=== PATIENT | male | born 1945 | race Caucasian/White ===

== ENCOUNTER 2022-08-30 13:11 | Inpatient (IN) ==
[2022-08-30] MEDS ORDERED: OPTIRAY 320 500ml IV ONE (13:22)
--- NOTE | 2022-08-30 13:42 | CT Scan Report ---
CT OF THE HEAD WITHOUT CONTRAST CLINICAL HISTORY: neuro deficit, acute stroke suspected COMPARISON STUDY: No previous studies for comparison. TECHNIQUE: Helical axial images of the head were obtained without IV contrast. Automated exposure con trol was utilized for the study. A dose lowering technique was utilized adhering to the principles o f ALARA. FINDINGS: No acute intracranial hemorrhage, midline shift or mass effect is present. A 2.1 cm hypoden sity with volume loss suggests encephalomalacia within the left occipital lobe shown on axial image 1 . White matter hypodensity suggests small vessel disease. The ventricular system is unremarkab le. The basal cisterns are patent. No extra-axial collections are present. There are no findings to s uggest acute dural sinus thrombosis or acute territorial infarct. No significant calvarial abnormalit ies are present. Visualized portions of the sinuses and mastoid air cells are clear. IMPRESSION: 1. No acute intracranial hemorrhage or mass effect. 2. 2.1 cm left occipital lobe hypodensity suggestive of encephalomalacia. This is suggestive of an ol d infarct. ACT 112: Negative or not required by law. Electronically signed by: Isra Urias M.D. 08/30/2022 1:41 PM
--- NOTE | 2022-08-30 13:43 | Emergency Department Note ---
Impression & Plan Stroke-like symptom, Slurring of speech, Carotid arterial disease ED Provider Note NAME: GARY HOUSER AGE: 77 SEX: M : 1945 ARRIVES VIA: Walk-In INFORMANT: Patient, the patient's son ED PROVIDER(S): Dev Fu DO CHIEF COMPLAINT: Strokelike symptoms HPI: The patient is a 77-year-old male who presented to the emergency department through triage for evaluation of strokelike symptoms. The patient was running errands driving a vehicle. He states he went to the store. He states he had no problems at the store. He returned from the store and got to his home. At his home where his son and his [id number]. He talked with his [id number] and appeared to have no problems but when he went to talk to his son the patient apparently started having problems speaking. His son states he was almost completely not able to understand what he was saying. He was also shaking his right leg complaining of numbness in his right leg. The patient has no history of stroke. He has a history of diabetes. He states he has no headache. He has no vomiting. He was brought to the emergency department. He was made a stroke alert from triage. I evaluated the patient in CAT scan. ROS: See above HPI for pertinent positives & negatives. A total of 10 systems reviewed and were otherwise negative. PAST MEDICAL HISTORY: See Below PAST SURGICAL HISTORY: See Below FAMILY HISTORY: See Below SOCIAL HISTORY: See Below HOME MEDICATIONS: See Below ALLERGIES: See Below VITALS: See Below PHYSICAL EXAMINATION: GENERAL: The patient is awake and alert. The patient is somewhat anxious appearing. He appears comfortable. EYES: The conjunctivae are clear. The pupils are round and reactive. EARS, NOSE, MOUTH AND THROAT: The nose is without any evidence of any deformity. NECK: The neck is nontender and supple. RESPIRATORY: Normal respiratory effort is noted there is no evidence of wheezing rhonchi or rales CARDIOVASCULAR: Ectopy was noted to auscultation but overall regular heart sounds were noted. There is no definite murmur. GASTROINTESTINAL: The abdomen is soft. Abdomen is nontender. MUSCULOSKELETAL/EXTREMITIES: There is no evidence of gross deformity full range of motion is noted in the hips and shoulders. SKIN: There is no obvious evidence of any rash. There are no petechiae, pallor o r cyanosis noted. NEUROLOGIC: Patient is awake and oriented to person place and situation. There was a slight facial droop on the left sparing the forehead. Patient is able to close both eyes. Speech is pressured. Patient has word finding. There is no drift in the upper extremities. Judicial Reporter strength is symmetric. Patient is able to hold each leg off the bed for greater than 5 seconds. MEDICAL DECISION MAKING: The patient is a 77-year-old male who presented to the emergency department through triage for an evaluation of strokelike symptoms. The patient appeared to have a slight facial droop as well as dysarthria. The patient's initial CAT scan showed no acute process. He was felt to be a candidate for an acute ischemic stroke. For this reason I discussed his condition with the [facility] telestroke neurologist. There was some issues with the connection. The patient was evaluated. The telestroke neurologist asked me to call him back so we went through the stroke center 1 call. When I discussed patient's condition with the telestroke neurologist he did recommend that we discussed possibility of TNK with the patient. The patient was verbally consented for TNK with himself as well as the patient's son. I discussed patient's laboratory and radiographic studies with the on-call [facility] group. They have agreed to evaluate the patient in the emergency department for further management and disposition. Triage Nursing notes reviewed. Prior medical records reviewed Vital Signs: reviewed and remarkable for initial hypertension. Differential diagnosis: Infection, dehydration, metabolic abnormality, hypo/hyperglycemia, electrolyte disturbance, anemia, hypoxia, cardiac sources, intracerebral event, toxicologic, neurologic, as well as other pathologies. ER treatment provided: See below Diagnostics interpreted by me: ECG: EKG was obtained in the emergency department. My interpretation is normal sinus rhythm at 75 bpm. There is no ectopy. There is no acute ST segment abnormalities. This was compared to a tracing from April 18, 2022. No changes were noted Cardiac Monitoring: An order was placed for continuous cardiac monitoring. The monitor shows a rate of 61 bpm with sinus rhythm. Laboratory studies: As stated above and show below. Imaging studies: See below. Radiographic imaging was reviewed by myself Consultation(s): I discussed this case with Dr. Phillips who is on for [facility]. I discussed this case with Stephanie who is on-call for the [facility] group. ED COURSE: Procedures: none Critical Care: I have personally spent greater than 45 minutes of critical care time in the direct management of this patient. This includes bedside care, interpretation of diagnostic studies, and testing, discussion with consultants, patient, and family members, and other required patient management activities. This 45 minutes is in excess of all separately billable procedures. Thrombolytics MDM Did the patient receive IV thrombolytics?: Yes Was there any delay in administration?: Yes Reason(s) for Delay: The patient had a waxing and waning of his symptoms. Symptoms were improving however after the patient was evaluated by the telestroke neurologist there was discussion for thrombolytic administration which ultimately was felt to be indicated. Past Med/Surg History Medical History (Updated 08/30/22 @ 17:00 by Stephanie Henderson PA-C) Anxiety DM type 2 (diabetes mellitus, type 2) IDDM [place] (hard of hearing) BL HICKS HTN (hypertension) Hyperlipemia Obesity War injury due to shrapnel hx Surgical History History of colonoscopy History of shoulder surgery Rt History of surgery removal of shrapnel from groin region History of tonsillectomy History of tooth extraction History of vasectomy Family History Father Diabetes Other No family history of adverse response to anesthesia Social History Smoking Status: Former smoker Second Hand Exposure: Yes (hx); Hx Alcohol Use: No Hx Substance Use: No Preferred Language: Somali Communication Ability: Effective Fire Equipment Repairer Inspector Required: No Beliefs That Will Affect Care: None Current Living Situation: Family Feels Safe at Home: Yes Safety Concerns: Feels Safe At This Time Assistive Devices: Denture - Upper, Glasses and Hearing Aid - Bilateral Allergies Allergies Allergy/AdvReac Type Severity Reaction Status Date / Time No Known Allergies Allergy Unknown Verified 04/13/22 06:22 Home Meds Home Medications Medication Instructions Recorded Confirmed atorvastatin 80 mg tablet 40 mg PO QAM 06/04/20 08/30/22 finasteride 5 mg tablet 5 mg PO QAM 06/04/20 08/30/22 insulin aspar prt-insulin aspart 18 unit subcut BID 06/04/20 08/30/22 100 unit/mL (70-30) subcutaneous soln (Novolog Mix 70-30 U-100 Insuln) lisinopril 10 mg tablet 5 mg PO QAM 06/04/20 08/30/22 metformin 1,000 mg tablet 1,000 mg PO BID 06/04/20 08/30/22 multivitamin 1 tab PO QAM 06/04/20 08/30/22 aspirin 81 mg tablet,delayed 81 mg PO DAILY 04/13/22 08/30/22 release cranberry 500 mg capsule 500 mg PO DAILY 04/13/22 08/30/22 omega 5-[id number]-fir-fish oil 1,000 mg 1 cap PO DAILY 04/13/22 08/30/22 (120 mg-180 mg) capsule (Fish Oil) Results & Data (ED) Vital Signs Vital Signs - 24 hr 08/30/22 13:16 08/30/22 13:41 08/30/22 13:37 Temperature Temperature Source Temporal Artery Scan Pulse Rate 81 73 72 Pulse Rate [Left] Pulse Rate from SpO2 Sensor 70 Pulse Rhythm [Left] Pulse Strength [Left] Respiratory Rate 18 13 Respiratory Effort / Characteristics Non-Labored Spontaneous Respiratory Depth Normal Respiratory Pattern Regular Blood Pressure 151/67 H 144/91 H Blood Pressure [Left Arm] Blood Pressure Mean 95 108 Blood Pressure Mean [Left Arm] Blood Pressure Position [Left Arm] Pulse Oximetry 93 94 Oxygen Delivery Method Room Air Room Air Sepsis Recent Fever Within 48 Hours No Sepsis New/Unexplained Change in Mental Status No Sepsis Action Taken by Nursing No Action Required 08/30/22 13:45 08/30/22 14:32 Temperature 36.8 C Temperature Source Oral Pulse Rate 77 Pulse Rate [Left] 65 Pulse Rate from SpO2 Sensor 76 Pulse Rhythm [Left] Regular Pulse Strength [Left] Normal Respiratory Rate 25 H 16 Respiratory Effort / Characteristics Non-Labored Respiratory Depth Normal Respiratory Pattern Regular Blood Pressure 163/86 H Blood Pressure [Left Arm] 138/66 Blood Pressure Mean 111 Blood Pressure Mean [Left Arm] 90 Blood Pressure Position [Left Arm] Sitting Pulse Oximetry 99 97 Oxygen Delivery Method Room Air Room Air Sepsis Recent Fever Within 48 Hours Sepsis New/Unexplained Change in Mental Status Sepsis Action Taken by Halfway Medications Current Medication List: was personally reviewed by me Laboratory Data Attestation: I reviewed the patient's lab results. 08/30/22 13:43 08/30/22 13:43 Lab Results 08/30/22 08/30/22 08/30/22 Range/Units 13:43 13:43 13:43 WBC 6.35 (4.8-10.8) K/ul RBC 4.35 L (4.70-6.10) M/uL Hgb 13.3 L (14.0-18.0) g/dl Hct 38.4 L (42.0-52.0) % MCV 88.3 (80.0-100.0) fL MCH 30.6 (25.0-34.0) pg MCHC 34.6 (32.0-36.0) g/dL RDW Std Deviation 41.4 (36.4-46.3) fL RDW Coeff of Primo 12.8 (11.5-14.5) % Plt Count 195 (130-400) K/uL MPV 9.4 (9.4-12.4) fL Immature Gran % (Auto) 0.8 % Neut % (Auto) 49.9 % Lymph % (Auto) 36.5 % [place] % (Auto) 10.1 % Eos % (Auto) 1.9 % Baso % (Auto) 0.8 % Neut # (Auto) 3.17 (1.40-6.50) K/uL Lymph # (Auto) 2.32 (1.2-3.4) K/uL [place] # (Auto) 0.64 H (0.11-0.59) K/uL Eos # (Auto) 0.12 (0-0.50) K/uL Baso # (Auto) 0.05 (0-0.2) K/uL Immature Gran # (Auto) 0.05 (0.01-0.20) K/uL PT 11.4 (9.0-12.0) Seconds INR 1.1 (0.9-1.1) APTT 26.2 (21.0-31.0) Seconds PTT Ratio 1.0 Sodium 132 L (136-145) mmol/L Potassium 4.4 (3.5-5.1) mmol/L Chloride 103 (98-107) mmol/L Carbon Dioxide 24 (21-32) mmol/L Anion Gap 5 (3-11) BUN 17 (6-23) mg/dl Creatinine 0.82 (0.6-1.4) mg/dl Est Cr Clr Drug Dosing 88.6 ml/min Est GFR ( Amer) 99.6 ml/min Est GFR (Non-Af Amer) 85.9 ml/min BUN/Creatinine Ratio 20.7 H (10-20) Glucose 145 H (70-99(Fasting)) mg/dl POC Glucose (70-99) mg/dl Calcium 8.0 L (8.6-10.3) mg/dl Magnesium 1.9 (1.7-2.4) mg/dl Total Bilirubin 0.5 (0.2-1.0) mg/dl AST 16 (13-39) U/L ALT 18 (7-52) U/L Alkaline Phosphatase 73 (34-104) U/L Troponin I High Sens 5.2 (0-20) pg/ml Total Protein 6.0 (6.0-8.3) gm/dl Albumin 3.7 (3.4-5.0) gm/dl Globulin 2.3 L (2.5-4.0) gm/dl Albumin/Globulin Ratio 1.6 (0.9-2) SARS-CoV-2, RNA, NAAT (NEGATIVE) 08/30/22 08/30/22 Range/Units 13:47 14:29 WBC (4.8-10.8) K/ul RBC (4.70-6.10) M/uL Hgb (14.0-18.0) g/dl Hct (42.0-52.0) % MCV (80.0-100.0) fL MCH (25.0-34.0) pg MCHC (32.0-36.0) g/dL RDW Std Deviation (36.4-46.3) fL RDW Coeff of Primo (11.5-14.5) % Plt Count (130-400) K/uL MPV (9.4-12.4) fL Immature Gran % (Auto) % Neut % (Auto) % Lymph % (Auto) % [place] % (Auto) % Eos % (Auto) % Baso % (Auto) % Neut # (Auto) (1.40-6.50) K/uL Lymph # (Auto) (1.2-3.4) K/uL [place] # (Auto) (0.11-0.59) K/uL Eos # (Auto) (0-0.50) K/uL Baso # (Auto) (0-0.2) K/uL Immature Gran # (Auto) (0.01-0.20) K/uL PT (9.0-12.0) Seconds INR (0.9-1.1) APTT (21.0-31.0) Seconds PTT Ratio Sodium (136-145) mmol/L Potassium (3.5-5.1) mmol/L Chloride (98-107) mmol/L Carbon Dioxide (21-32) mmol/L Anion Gap (3-11) BUN (6-23) mg/dl Creatinine (0.6-1.4) mg/dl Est Cr Clr Drug Dosing ml/min Est GFR ( Amer) ml/min Est GFR (Non-Af Amer) ml/min BUN/Creatinine Ratio (10-20) Glucose (70-99(Fasting)) mg/dl POC Glucose 146 H (70-99) mg/dl Calcium (8.6-10.3) mg/dl Magnesium (1.7-2.4) mg/dl Total Bilirubin (0.2-1.0) mg/dl AST (13-39) U/L ALT (7-52) U/L Alkaline Phosphatase (34-104) U/L Troponin I High Sens (0-20) pg/ml Total Protein (6.0-8.3) gm/dl Albumin (3.4-5.0) gm/dl Globulin (2.5-4.0) gm/dl Albumin/Globulin Ratio (0.9-2) SARS-CoV-2, RNA, NAAT NEGATIVE (NEGATIVE) Administered Medications Lactated Ringer's (Lr) 1,000 mls @ 40 mls/hr IV .Q24H JOJO Stop: 09/29/22 17:14 Last Admin: 08/30/22 17:35 Dose: 40 mls/hr Documented By: MTP Miscellaneous (Icu Protocol For Hyperglycemia) 1 each N/A ACHS JOJO Stop: 09/01/22 16:29 Last Admin: 08/30/22 16:59 Dose: Not Given Documented By: WRS Discontinued Medications Gadobutrol (Gadobutrol 65ml Vial) 9.6 ml IV ONCE ONE Stop: 08/30/22 18:13 Last Admin: 08/30/22 18:13 Dose: 9.6 ml Documented By: GILSON Tenecteplase 25 mg/ Syringe 5 mls @ 60 mls/min IV NOW ONE; Protocol Stop: 08/30/22 14:17 Last Admin: 08/30/22 14:17 Dose: 60 mls/min Documented By: AMADA Co-signed By: FEDERICA Ioversol (Optiray 320 500ml) 120 ml IV ONCE ONE Stop: 08/30/22 13:23 Last Admin: 08/30/22 13:22 Dose: 120 ml Documented By: CINTIA Miscellaneous (Stat Iv) 1 each N/A NOW STA Stop: 08/30/22 14:07 Last Admin: 08/30/22 14:17 Dose: 1 each Documented By: AMADA Sodium Chloride (Sodium Chloride 0.9% 10ml Flush) 20 ml IV NOW STA Stop: 08/30/22 14:07 Last Admin: 08/30/22 14:17 Dose: 20 ml Documented By: AMADA Imaging Data Attestation: I personally reviewed and interpreted this imaging study as follows: My Impression: 1 view chest x-ray was obtained in the emergency department. My interpretation is no acute disease. CT of the brain was obtained in the emergency department without contrast. My interpretation is no intracranial mass or hemorrhage, final report below. Radiologist's Impression: Chest X-Ray 08/30/22 13:19 XR chest 1V portable CLINICAL HISTORY: neuro deficit, acute stroke suspected COMPARISON STUDY: Chest radiograph and chest CT April 13, 2022. FINDINGS: Old right-sided rib fractures are again noted. Lung volumes are normal. Lungs are clear. There is no pneumothorax or pleural effusion. Cardiomegaly is unchanged. Mediastinal contours are normal. There is no evidence for pulmonary edema. IMPRESSION: No acute cardiopulmonary findings. Cardiomegaly. ACT 112: Negative or not required by law. Electronically signed by: Isra Urias M.D. 08/30/2022 2:[address] 08/30/22 13:19 CT OF THE HEAD WITHOUT CONTRAST CLINICAL HISTORY: neuro deficit, acute stroke suspected COMPARISON STUDY: No previous studies for comparison. TECHNIQUE: Helical axial images of the head were obtained without IV contrast. Automated exposure control was utilized for the study. A dose lowering technique was utilized adhering to the principles of ALARA. FINDINGS: No acute intracranial hemorrhage, midline shift or mass effect is present. A 2.1 cm hypodensity with volume loss suggests encephalomalacia within the left occipital lobe shown on axial image 19 of 32. White matter hypodensity suggests small vessel disease. The ventricular system is unremarkable. The basal cisterns are patent. No extra-axial collections are present. There are no findings to suggest acute dural sinus thrombosis or acute territorial infarct. No significant calvarial abnormalities are present. Visualized portions of the sinuses and mastoid air cells are clear. IMPRESSION: 1. No acute intracranial hemorrhage or mass effect. 2. 2.1 cm left occipital lobe hypodensity suggestive of encephalomalacia. 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 ACT 112: Negative or not required by law. Electronically signed by: Isra Urias M.D. 08/30/2022 1:41 PM Head CTA 08/30/22 13:19 CTA ANGIOGRAPHY OF THE HEAD CLINICAL HISTORY: neuro deficit, acute stroke suspected COMPARISON STUDY: No previous studies for comparison. TECHNIQUE: Helical axial images of the head were obtained following uneventful intravenous administration of 120 cc of Optiray. Sagittal and coronal reconstructions were viewed as well as maximal intensity projections on an independent 3-D workstation. Automated exposure control was utilized for the study. A dose lowering technique was utilized adhering to the principles of ALARA. 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 There is moderate plaque within the bilateral cavernous carotids without stenosis. No central vessel occlusion is identified. There is no intracranial aneurysm. Major dural sinuses are grossly patent. Head CT will be reported separately. IMPRESSION: No central vessel occlusion. No intracranial aneurysm. ACT 112: Negative or not required by law. Electronically signed by: Isra Urias M.D. 08/30/2022 1:51 PM Neck CTA 08/30/22 13:19 CT ANGIOGRAPHY OF THE NECK WITH CONTRAST CLINICAL HISTORY: neuro deficit, acute stroke suspected COMPARISON STUDY: No previous studies for comparison. Technique: CT angiography of the carotid and vertebral arteries was obtained using Optiray and 3D reconstruction on an independent workstation. NASCET criteria was utilized. Automated exposure control was utilized for the study. A dose lowering technique was utilized adhering to the principles of ALARA. CT DOSE: 1258.88 mGy.cm Findings: Extensive osteophytosis within the cervical spine is noted. No acute fractures are identified. There is no cervical lymphadenopathy. There is mild plaque within the right carotid bifurcation without stenosis. There is moderate plaque within the left carotid bifurcation without significant stenosis. Severe stenosis at the origin of the left vertebral artery is present. The right vertebral artery is dominant. There is no dissection or aneurysm within the major vessels of the neck. IMPRESSION: 1. Moderate plaque within the left carotid bifurcation without stenosis. Mild plaque within the right carotid bifurcation. 2. 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 No additional stenoses within the major vessels of the neck. ACT 112: Negative or not required by law. Electronically signed by: Isra Urias M.D. 08/30/2022 1:45 PM Discharge Plan Visit Data Chief Complaint: Neuro Symptoms/Deficit Stated Complaint: SLURRED WORDS, RIGHT LEG NUMBNESS/WEAKNESS ED Provider: Dev Fu Discharge Problem: Stroke-like symptom, Slurring of speech, Carotid arterial disease Patient Disposition: Admitted As Inpatient Discharge Instructions Interventions: ED Discharge Assessment Last Done: 08/30/22 15:29 Carotid arterial disease Qualifiers: Carotid artery disease type: unspecified Laterality: unspecified laterality Qualified Code(s): I77.9 - Disorder of arteries and arterioles, unspecified
--- NOTE | 2022-08-30 13:47 | CT Scan Report ---
CT ANGIOGRAPHY OF THE NECK WITH CONTRAST CLINICAL HISTORY: neuro deficit, acute stroke suspected COMPARISON STUDY: No previous studies for comparison. Technique: CT angiography of the carotid and vertebral arteries was obtained using Optiray and 3D rec onstruction on an independent workstation. NASCET criteria was utilized. Automated exposure control was utilized for the study. A dose lowering technique was utilized adhering to the principles of ALA RA. CT DOSE: 1258.88 mGy.cm Findings: Extensive osteophytosis within the cervical spine is noted. No acute fractures are identifi ed. There is no cervical lymphadenopathy. There is mild plaque within the right carotid bifurcation w ithout stenosis. There is moderate plaque within the left carotid bifurcation without significant jacqui nosis. Severe stenosis at the origin of the left vertebral artery is present. The right vertebral art harley is dominant. There is no dissection or aneurysm within the major vessels of the neck. IMPRESSION: 1. Moderate plaque within the left carotid bifurcation without stenosis. Mild plaque within the right carotid bifurcation. 2. 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 No additional stenoses within the layla r vessels of the neck. ACT 112: Negative or not required by law. Electronically signed by: Isra Urias M.D. 08/30/2022 1:45 PM
--- NOTE | 2022-08-30 13:54 | CT Scan Report ---
CTA ANGIOGRAPHY OF THE HEAD CLINICAL HISTORY: neuro deficit, acute stroke suspected COMPARISON STUDY: No previous studies for comparison. TECHNIQUE: Helical axial images of the head were obtained following uneventful intravenous administr ation of 120 cc of Optiray. Sagittal and coronal reconstructions were viewed as well as maximal inten sity projections on an independent 3-D workstation. Automated exposure control was utilized for the study. A dose lowering technique was utilized adhering to the principles of ALARA. 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 There is moderate plaque within the bilater al cavernous carotids without stenosis. No central vessel occlusion is identified. There is no intrac ranial aneurysm. Major dural sinuses are grossly patent. Head CT will be reported separately. IMPRESSION: No central vessel occlusion. No intracranial aneurysm. ACT 112: Negative or not required by law. Electronically signed by: Isra Urias M.D. 08/30/2022 1:51 PM
[2022-08-30 14:05] LABS: Basophils # (auto) 0.05 K/uL (0-0.2); Basophils % (auto) 0.8 %; Eosinophils # (auto) 0.12 K/uL (0-0.50); Eosinophils % (auto) 1.9 %; Hematocrit (blood only) 38.4 % (42.0-52.0); Hemoglobin 13.3 g/dl (14.0-18.0); Immature Granulocytes # (auto) 0.05 K/uL (0.01-0.20); Immature Granulocytes % (auto) 0.8 %; Lymphocytes # (auto) 2.32 K/uL (1.2-3.4); Lymphocytes % (auto) 36.5 %; Mean Corpuscular Hemoglobin 30.6 pg (25.0-34.0); Mean Corpuscular Hgb Conc 34.6 g/dL (32.0-36.0); Mean Corpuscular Volume 88.3 fL (80.0-100.0); Mean Platelet Volume 9.4 fL (9.4-12.4); Monocytes # (auto) 0.64 K/uL (0.11-0.59); Monocytes % (auto) 10.1 %; Neutrophils # (auto) 3.17 K/uL (1.40-6.50); Neutrophils % (auto) 49.9 %; Platelet Count 195 K/uL (130-400); RDW Coefficient of Variation 12.8 % (11.5-14.5); RDW Standard Deviation 41.4 fL (36.4-46.3); Red Blood Count 4.35 M/uL (4.70-6.10); White Blood Count 6.35 K/ul (4.8-10.8)
[2022-08-30] MEDS ORDERED: SODIUM CHLORIDE 0.9% 10ML FLUSH IV STA (14:06)
[2022-08-30] MEDS ORDERED: STAT IV STA (14:06)
--- NOTE | 2022-08-30 14:11 | XRay Report ---
XR chest 1V portable CLINICAL HISTORY: neuro deficit, acute stroke suspected COMPARISON STUDY: Chest radiograph and chest CT April 13, 2022. FINDINGS: Old right-sided rib fractures are again noted. Lung volumes are normal. Lungs are clear. Th ere is no pneumothorax or pleural effusion. Cardiomegaly is unchanged. Mediastinal contours are cherri l. There is no evidence for pulmonary edema. IMPRESSION: No acute cardiopulmonary findings. Cardiomegaly. ACT 112: Negative or not required by law. Electronically signed by: Isra Urias M.D. 08/30/2022 2:10 PM
[2022-08-30] MEDS ORDERED: No Aspirin within 24hrs of THROMBOLYTIC-Stroke PO SCH (14:15)
[2022-08-30] MEDS ORDERED: TENECTEPLASE 25 MG in SYRINGE 0 ML IV ONE (14:16)
[2022-08-30 14:21] LABS: Albumin Globulin Ratio 1.6 (0.9-2); Albumin Level 3.7 gm/dl (3.4-5.0); BUN Creatinine Ratio 20.7 (10-20); Bilirubin,Total 0.5 mg/dl (0.2-1.0); Creatinine Clr Calc Pharmacy 88.6 ml/min; Est GFR (African American) 99.6 ml/min; Est GFR (Non-African American) 85.9 ml/min; Globulin 2.3 gm/dl (2.5-4.0); Magnesium 1.9 mg/dl (1.7-2.4); Potassium 4.4 mmol/L (3.5-5.1)
[2022-08-30 14:27] LABS: Troponin I High Sensitivity 5.2 pg/ml (0-20)
[2022-08-30 14:39] LABS: INR 1.1 (0.9-1.1); Partial Thromboplastin Time 26.2 Seconds (21.0-31.0); Prothrombin Time 11.4 Seconds (9.0-12.0)
[2022-08-30 15:12] LABS: Appearance Urine Clear (Clear); Bilirubin Urine Negative (Negative); Blood Urine Negative (Negative); Color Urine Yellow; Glucose Urine UA Trace (Negative); Ketones Urine Negative (Negative); Leukocyte Esterase Urine Negative (Negative); Nitrite Urine Negative (Negative); Protein Urine Negative (Negative); Specific Gravity Urine 1.023 (1.000-1.030); Urobilinogen Urine Negative (Negative)
[2022-08-30] MEDS ORDERED: PHARMACIST DISCHARGE MED REC CONSULT PRN (15:34)
[2022-08-30] MEDS ORDERED: LABETALOL HCL IV 5 MG/ML 20ML IV PRN (15:34)
[2022-08-30] MEDS ORDERED: GLUCOSE 40% GEL 15 GM TUBE PO PRN (16:37)
[2022-08-30] MEDS ORDERED: GLUCOSE 10 TAB/TUBE PO PRN (16:37)
[2022-08-30] MEDS ORDERED: DEXTROSE 50% 50 ML SYRINGE IV PRN (16:37)
[2022-08-30] MEDS ORDERED: CARBOHYDRATES FOR HYPOGLYCEMIA PO PRN (16:37)
[2022-08-30] MEDS ORDERED: GLUCAGON FOR INJ 1 MG VIAL SQ PRN (16:37)
[2022-08-30] MEDS ORDERED: PHARMACY GLYCEMIC MGMT CONSULT PRN (16:38)
[2022-08-30] MEDS: ICU Protocol for HYPERglycemia SCH ×2 (16:59→20:33)
--- NOTE | 2022-08-30 17:01 | History & Physical Report ---
Date of Service August 30, 2022 Assessment & Plan (1) Stroke-like symptom: (2) Slurring of speech: (3) Carotid arterial disease: (4) DM type 2 (diabetes mellitus, type 2): Plan This is a 77-year-old male who follows with the ID clinic who has significant past medical history of insulin-dependent diabetes, hypertension, hyperlipidemia, [place] with previous shrapnel injury who presents to ED secondary to dysarthria that started at 1300. 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 2. 2.1 cm left occipital lobe hypodensity suggestive of encephalomalacia. 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 Head/Neck CTA: 1. Moderate plaque within the left carotid bifurcation without stenosis. Mild plaque within the right carotid bifurcation. 2. 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 No additional stenoses within the major vessels of the neck. consult neuro obtain echocardiogram, PT/OT/ST A1C, Lipid panel in a.m. unable to confirm pts Meds as he is unaware of them (other than insulin and met formin) [facility] but may not be able to do this til thursday previous med rec states he was on high intensity stain when NPO lifted will need to place on atorvastatin 40mg regardless no ASA for 24hrs due to TNK, pt states he took a baby asa this morning repeat CT in 24 hrs gentle LR 40cc/hr while NPO IDDM Type 2 a1c in a.m. NPH bid, as needed novolog will consult glycemic pharmacist Dispo: admit to ICU, will need to [facility] rec [facility] when [facility], all meds held given NPO status FULL CODE PCP: ID clinic Patient was seen and examined in collaboration with Dr. Spring, please see addendum Admission and Anticipated Discharge Date Admission Date: August 30, 2022 History of Present Illness Chief Complaint: Dysarthria since 1300. Primary Care Provider: [facility] This is a 77-year-old male who follows with the ID clinic who has significant past medical history of insulin-dependent diabetes, hypertension, hyperlipidemia, [place] War with previous shrapnel injury who presents to ED secondary to dysarthria that started at 1300. His son is at bedside who witnessed the event. At approximately 1300 patient started slurring his words and, "not making sense." Son had very difficult time understanding patient. Patient at that time also complained of bilateral numbness like his, "legs were falling asleep." In ED patient remained hemodynamically stable. Initial head CT revealed a 2.1 cm left occipital lobe hypodensity suggestive of encephalomalacia suggestive of an old infarct but no acute intracranial hemorrhage. Head and neck CTA revealed severe stenosis at the origin of the left vertebral artery, moderate plaque within the left carotid bifurcation without stenosis, mild plaque within the right carotid bifurcation. Patient was a stroke alert and telemetry neurology recommending TNK administration. TNKase was administered at 1417. Patient was seen post administration. According to son at bedside he feels his difficulty with speaking is now coming and going. According to nurse at bedside his NIH scale is reducing. His blood pressure has remained stable. Patient is very hard of hearing. He tells [facility] 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 This required a partial colectomy. He tells me he has diabetes and takes insulin but is unsure of his medications and really denies any other past medical problems. Allergies Allergy/AdvReac Type Severity Reaction Status Date / Time No Known Allergies Allergy Unknown Verified 04/13/22 06:22 Home Medications Medication Instructions Recorded Confirmed Type atorvastatin 80 mg tablet 40 mg PO QAM 06/04/20 08/30/22 History finasteride 5 mg tablet 5 mg PO QAM 06/04/20 08/30/22 History insulin aspar prt-insulin aspart 18 unit subcut BID 06/04/20 08/30/22 History 100 unit/mL (70-30) subcutaneous soln (Novolog Mix 70-30 U-100 Insuln) lisinopril 10 mg tablet 5 mg PO QAM 06/04/20 08/30/22 History metformin 1,000 mg tablet 1,000 mg PO BID 06/04/20 08/30/22 History multivitamin 1 tab PO QAM 06/04/20 08/30/22 History aspirin 81 mg tablet,delayed 81 mg PO DAILY 04/13/22 08/30/22 History release cranberry 500 mg capsule 500 mg PO DAILY 04/13/22 08/30/22 History omega 7-cyd-ltn-fish oil 1,000 mg 1 cap PO DAILY 04/13/22 08/30/22 History (120 mg-180 mg) capsule (Fish Oil) Past Med/Surg History Medical History (Updated 08/30/22 @ 17:00 by Stephanie Henderson PA-C) Anxiety DM type 2 (diabetes mellitus, type 2) IDDM [place] (hard of hearing) [place] HICKS HTN (hypertension) Hyperlipemia Obesity War injury due to shrapnel hx Surgical History History of colonoscopy History of shoulder surgery Rt History of surgery removal of shrapnel from groin region History of tonsillectomy History of tooth extraction History of vasectomy Family History Father Diabetes Other No family history of adverse response to anesthesia Social History Smoking Status: Former smoker Second Hand Exposure: Yes (hx); Hx Alcohol Use: No Hx Substance Use: No Preferred Language: Romanian Communication Ability: Effective Linotype Operator Required: No Beliefs That Will Affect Care: None Current Living Situation: Family Feels Safe at Home: Yes Safety Concerns: Feels Safe At This Time Assistive Devices: Denture - Upper, Glasses and Hearing Aid - Bilateral Review of Systems Review of Systems: All systems reviewed & are unremarkable except as noted in HPI & below Physical Exam Physical Exam: Constitutional: WD/WN, vitals as above, NAD, sitting up in bed, pleasant, conversing easily Head: Normocephalic, Atraumatic Eyes: PERRL, conjunctivae normal, anicteric sclerae ENMT: external ear and nose normal, oropharynx normal Neck: trachea midline, no thyromegaly normal visual inspection Respiratory: normal respiratory effort, lungs clear to auscultation, no wheeze, rales, rhonchi. Normal insp/exp effort, no accessory muscle use Cardiovascular: RRR, no murmur, no edema Vessels: no JVD or carotid bruit Chest: normal inspection of chest Abdomen: normal bowel sounds, soft, nontender, no hepatosplenomegaly Musculoskeletal: no cyanosis or clubbing, extremities motor strength 5/5 Skin: no rashes, warm and dry normal turgor Neurologic: PERRL, EOMI, accommodation nl, mild left facial droop, mild dysarthria CN's II-XI intact bilaterally and moves all extremities Psychiatric: A+Ox3, euthymic affect Lymphatic: no cervical or axillary lymphadenopathy : deferred Results & Data Results & Data Vital Signs (Past 12 Hours) Vital Signs Temp Pulse Pulse Pulse Resp BP BP 08/30/22 16:23 36.7 C 62 18 150/69 H 08/30/22 16:08 36.8 C 63 18 150/74 H 08/30/22 15:53 36.8 C 60 12 149/86 H 08/30/22 15:38 36.7 C 67 18 151/77 H 08/30/22 15:23 36.8 C 64 16 162/72 H 08/30/22 15:02 64 158/83 H 08/30/22 14:47 36.9 C 66 16 159/71 H 08/30/22 14:32 36.8 C 65 16 138/66 08/30/22 13:45 77 25 H 163/86 H 08/30/22 13:37 72 13 144/91 H 08/30/22 13:41 73 08/30/22 13:16 81 18 151/67 H Pulse Ox O2 Del Method 08/30/22 16:23 99 Room Air 08/30/22 16:08 99 Room Air 08/30/22 15:53 100 Room Air 08/30/22 15:38 98 Room Air 08/30/22 15:23 96 Room Air 08/30/22 15:02 98 Room Air 08/30/22 14:47 99 Room Air 08/30/22 14:32 97 Room Air 08/30/22 13:45 99 Room Air 08/30/22 13:37 94 Room Air 08/30/22 13:41 08/30/22 13:16 93 Room Air Medications Administered Medication List Miscellaneous (Icu Protocol For Hyperglycemia) 1 each N/A ACHS JOJO Stop: 09/01/22 16:29 Last Admin: 08/30/22 16:59 Dose: Not Given Documented By: WRS Discontinued Medications Tenecteplase 25 mg/ Syringe 5 mls @ 60 mls/min IV NOW ONE; Protocol Stop: 08/30/22 14:17 Last Admin: 08/30/22 14:17 Dose: 60 mls/min Documented By: AMADA Co-signed By: FEDERICA Ioversol (Optiray 320 500ml) 120 ml IV ONCE ONE Stop: 08/30/22 13:23 Last Admin: 08/30/22 13:22 Dose: 120 ml Documented By: CINTIA Miscellaneous (Stat Iv) 1 each N/A NOW STA Stop: 08/30/22 14:07 Last Admin: 08/30/22 14:17 Dose: 1 each Documented By: NH Sodium Chloride (Sodium Chloride 0.9% 10ml Flush) 20 ml IV NOW STA Stop: 08/30/22 14:07 Last Admin: 08/30/22 14:17 Dose: 20 ml Documented By: AMADA ECG Additional Comments: 75 bpm, normal sinus rhythm, no ST or T wave changes, EKG was interpreted by wi COVID-19 Results Results COVID-19 Adm Lab Results: RBC 4.35 M/uL (4.70-6.10) L 08/30/22 WBC 6.35 K/ul (4.8-10.8) 08/30/22 Hgb 13.3 g/dl (14.0-18.0) L 08/30/22 Hct 38.4 % (42.0-52.0) L 08/30/22 Plt Count 195 K/uL (130-400) 08/30/22 Neutrophils (%) (Auto) 49.9 % 08/30/22 Lymphocytes (%) (Auto) 36.5 % 08/30/22 Monocytes # (Auto) 0.64 K/uL (0.11-0.59) H 08/30/22 Eosinophils # (Auto) 0.12 K/uL (0-0.50) 08/30/22 Immature Granulocyte % (Auto) 0.8 % 08/30/22 Neutrophils # (Auto) 3.17 K/uL (1.40-6.50) 08/30/22 Lymphocytes # (Auto) 2.32 K/uL (1.2-3.4) 08/30/22 Monocytes # (Auto) 0.64 K/uL (0.11-0.59) H 08/30/22 Eosinophils # (Auto) 0.12 K/uL (0-0.50) 08/30/22 Basophils # (Auto) 0.05 K/uL (0-0.2) 08/30/22 Immature Granulocyte # (Auto) 0.05 K/uL (0.01-0.20) 3 Na 132 mmol/L (136-145) L 08/30/22 K 4.4 mmol/L (3.5-5.1) 08/30/22 Cl 103 mmol/L (98-107) 08/30/22 CO2 24 mmol/L (21-32) 08/30/22 Anion Gap 5 (3-11) 08/30/22 BUN 17 mg/dl (6-23) 08/30/22 Creatinine 0.82 mg/dl (0.6-1.4) 08/30/22 BUN/Creatinine Ratio 20.7 (10-20) H 08/30/22 Glucose Level 145 mg/dl (70-99(Fasting)) H 08/30/22 Ca 8.0 mg/dl (8.6-10.3) L 08/30/22 Total Bilirubin 0.5 mg/dl (0.2-1.0) 08/30/22 AST/SGOT 16 U/L (13-39) 08/30/22 ALT/SGPT 18 U/L (7-52) 08/30/22 Alkaline Phosphatase 73 U/L (34-104) 08/30/22 Total Protein 6.0 gm/dl (6.0-8.3) 08/30/22 Albumin 3.7 gm/dl (3.4-5.0) 08/30/22 Globulin 2.3 gm/dl (2.5-4.0) L 08/30/22 Albumin/Globulin Ratio 1.6 (0.9-2) 08/30/22 PTT 26.2 Seconds (21.0-31.0) 08/30/22 INR 1.1 (0.9-1.1) 08/30/22 SARS-CoV-2, RNA, NAAT NEGATIVE (NEGATIVE) 08/30/22 Chest X-Ray 08/30/22 Code Status & VTE Plan Code Status Full code VTE Prophylaxis Plan VTE Prophylaxis will be ordered: Yes Supervising Physician Co-Signing Physician Notes Patient is a 77-year-old male with history of hypertension, diabetes mellitus, hyperlipidemia and other medical problems presents with history of sudden onset of dysarthria at around 1 PM today. Patient initially also reported to have right lower extremity numbness. 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 He denies any change in vision, focal weakness, chest pain, dyspnea, dizziness, nausea, abdominal pain. Please review HPI for complete details of presentation. Patient received TNK while in ED. Currently speech seems to be back to baseline. I personally reviewed blood work, imaging studies. On exam patient is well-built and nourished, no apparent distress, normocephalic, atraumatic, EOMI, normal breath sounds, clear to auscultation, S1-S2, no murmur, no pedal edema, abdomen soft, nontender, normal bowel sounds, alert, awake, oriented, grossly no focal deficits,+ left facial droop present. Strokelike symptoms. Head and neck CTA did not show any acute findings. CT head showed 2.1 cm left occipital hypodensity suggestive of encephalomalacia likely secondary to old infarct. MRI brain pending. Patient will be monitored in ICU post TNK. Food Analyst, neurologist consulted. Agree with checking lipid panel, A1c. Continue insulin while hospitalized for managing diabetes mellitus. Speech therapy, PT OT evaluation requested. We will hold aspirin given. Will need repeat CT head in 24 hours. Plan to resume atorvastatin, lisinopril as able. I personally reviewed the record. Patient is interviewed and examined at bedside. Patient's care is coordinated with Stephanie Henderson PA-C. Please refer to the documentation above for details of patient's presentation and for discussion of other issues. (3) Carotid arterial disease Carotid artery disease type: unspecified Laterality: unspecified laterality Qualified Code(s): I77.9 - Disorder of arteries and arterioles, unspecified
--- NOTE | 2022-08-30 17:13 | Critical Care Consultation ---
Date of Consultation August 30, 2022 Assessment & Plan (1) Stroke-like symptom: (2) Slurring of speech: Plan Impression: 77-year-old male with multiple medical comorbidities admitted to the ICU to monitor for bleeding complications status post systemic thrombolytics for strokelike symptoms. Recommendations: 1. Status post systemic thrombolysis: Continue to monitor 24 hours in the ICU for bleeding complications associated with thrombolysis. We will plan on follow-up CT scan tomorrow afternoon. If this is negative the patient can likely be dismissed home. 2. Formal neurology consultation pending. Await MRI of the brain, echocardiogram, and potential carotid Dopplers. 3. Glycemic control per protocol. Hold metformin for 24 hours given IV contrast administration. 4. PT OT and speech therapy evaluations. 5. Continue home lipid therapy and antihypertensive therapies. Disposition will depend on response to therapy. Discussed with critical care nurses and patient at bedside. History of Present Illness Attending Physician: Ananda Spring MD History of Present Illness Asked by hospitalist to assist in evaluation management this patient status post systemic thrombolytic administration for strokelike symptoms. History is obtained from discussion with the patient as well as review the electronic medical record. The patient is a 77-year-old male followed at the [facility] with a history of diabetes hypertension hyperlipidemia who presented to the emergency room for evaluation of acute dysarthria. He developed some expressive aphasia and dysarthria as well as some paresthesias in his bilateral lower extremities. CT of the head showed no acute findings however there was stenosis of the left vertebral artery and plaque within the left carotid bifurcation. Telestroke consultation was obtained in the ER and telestroke physician recommend administration of systemic lytics. The patient's initial NIH score was 2-3. I assessed the patient in the ICU. He currently has an NIH of about 1. His dysarthria and difficulty with word finding have resolved completely. He has been hemodynamically stable. Allergies Allergy/AdvReac Type Severity Reaction Status Date / Time No Known Allergies Allergy Unknown Verified 04/13/22 06:22 Home Medications Medication Instructions Recorded Confirmed Type atorvastatin 80 mg tablet 40 mg PO QAM 06/04/20 08/30/22 History finasteride 5 mg tablet 5 mg PO QAM 06/04/20 08/30/22 History insulin aspar prt-insulin aspart 18 unit subcut BID 06/04/20 08/30/22 History 100 unit/mL (70-30) subcutaneous soln (Novolog Mix 70-30 U-100 Insuln) lisinopril 10 mg tablet 5 mg PO QAM 06/04/20 08/30/22 History metformin 1,000 mg tablet 1,000 mg PO BID 06/04/20 08/30/22 History multivitamin 1 tab PO QAM 06/04/20 08/30/22 History aspirin 81 mg tablet,delayed 81 mg PO DAILY 04/13/22 08/30/22 History release cranberry 500 mg capsule 500 mg PO DAILY 04/13/22 08/30/22 History omega 9-odf-nsk-fish oil 1,000 mg 1 cap PO DAILY 04/13/22 08/30/22 History (120 mg-180 mg) capsule (Fish Oil) Patient History Medical History (Updated 08/30/22 @ 17:00 by Stephanie Henderson PA-C) Anxiety DM type 2 (diabetes mellitus, type 2) IDDM [place] (hard of hearing) [place] HICKS HTN (hypertension) Hyperlipemia Obesity War injury due to shrapnel hx Surgical History History of colonoscopy History of shoulder surgery Rt History of surgery removal of shrapnel from groin region History of tonsillectomy History of tooth extraction History of vasectomy Family History Father Diabetes Other No family history of adverse response to anesthesia Social History Smoking Status: Former smoker Second Hand Exposure: Yes (hx); Hx Alcohol Use: No Hx Substance Use: No Preferred Language: Upper Sorbian Communication Ability: Effective Cable Engineer Required: No Beliefs That Will Affect Care: None Current Living Situation: Family Feels Safe at Home: Yes Safety Concerns: Feels Safe At This Time Assistive Devices: Denture - Upper, Glasses and Hearing Aid - Bilateral Review of Systems Review of Systems: Please refer to admission H&P. No additions or deletions Physical Exam Constitutional: WD/WN, vitals as above Neck: trachea midline, no thyromegaly Respiratory: normal respiratory effort, lungs clear to auscultation Cardiovascular: RRR, no murmur, no edema Gastrointestinal (Abdomen): normal bowel sounds, soft, nontender, no hepatosplenomegaly Musculoskeletal: Extremities: extremities normal to inspection Skin: no rashes, warm and dry Neurologic: Nonfocal exam Lymphatic: no cervical lymphadenopathy Results & Data Results & Data Vital Signs (Past 12 Hours) Vital Signs Temp Pulse Pulse Pulse Resp BP BP 08/30/22 17:00 36.7 C 69 16 147/80 H 08/30/22 16:23 36.7 C 62 18 150/69 H 08/30/22 16:08 36.8 C 63 18 150/74 H 08/30/22 15:53 36.8 C 60 12 149/86 H 08/30/22 15:38 36.7 C 67 18 151/77 H 08/30/22 15:23 36.8 C 64 16 162/72 H 08/30/22 15:02 64 158/83 H 08/30/22 14:47 36.9 C 66 16 159/71 H 08/30/22 14:32 36.8 C 65 16 138/66 08/30/22 13:45 77 25 H 163/86 H 08/30/22 13:37 72 13 144/91 H 08/30/22 13:41 73 08/30/22 13:16 81 18 151/67 H Pulse Ox O2 Del Method 08/30/22 17:00 98 Room Air 08/30/22 16:23 99 Room Air 08/30/22 16:08 99 Room Air 08/30/22 15:53 100 Room Air 08/30/22 15:38 98 Room Air 08/30/22 15:23 96 Room Air 08/30/22 15:02 98 Room Air 08/30/22 14:47 99 Room Air 08/30/22 14:32 97 Room Air 08/30/22 13:45 99 Room Air 08/30/22 13:37 94 Room Air 08/30/22 13:41 08/30/22 13:16 93 Room Air Critical Care Results & Data Vital Signs (Past 12 Hours) Vital Signs Temp Pulse Pulse Pulse Resp BP BP 08/30/22 17:00 36.7 C 69 16 147/80 H 08/30/22 16:23 36.7 C 62 18 150/69 H 08/30/22 16:08 36.8 C 63 18 150/74 H 08/30/22 15:53 36.8 C 60 12 149/86 H 08/30/22 15:38 36.7 C 67 18 151/77 H 08/30/22 15:23 36.8 C 64 16 162/72 H 08/30/22 15:02 64 158/83 H 08/30/22 14:47 36.9 C 66 16 159/71 H 08/30/22 14:32 36.8 C 65 16 138/66 08/30/22 13:45 77 25 H 163/86 H 08/30/22 13:37 72 13 144/91 H 08/30/22 13:41 73 08/30/22 13:16 81 18 151/67 H Pulse Ox O2 Del Method 08/30/22 17:00 98 Room Air 08/30/22 16:23 99 Room Air 08/30/22 16:08 99 Room Air 08/30/22 15:53 100 Room Air 08/30/22 15:38 98 Room Air 08/30/22 15:23 96 Room Air 08/30/22 15:02 98 Room Air 08/30/22 14:47 99 Room Air 08/30/22 14:32 97 Room Air 08/30/22 13:45 99 Room Air 08/30/22 13:37 94 Room Air 08/30/22 13:41 08/30/22 13:16 93 Room Air Lab & Micro Results (Past 24 Hours) RBC 4.35 M/uL (4.70-6.10) L 08/30/22 WBC 6.35 K/ul (4.8-10.8) 08/30/22 Hgb 13.3 g/dl (14.0-18.0) L 08/30/22 Hct 38.4 % (42.0-52.0) L 08/30/22 MCV 88.3 fL (80.0-100.0) 08/30/22 MCH 30.6 pg (25.0-34.0) 08/30/22 MCHC 34.6 g/dL (32.0-36.0) 08/30/22 RDW Standard Deviation 41.4 fL (36.4-46.3) 08/30/22 RDW Coefficient of Variation 12.8 % (11.5-14.5) 08/30/22 Plt Count 195 K/uL (130-400) 08/30/22 MPV 9.4 fL (9.4-12.4) 08/30/22 Neutrophils (%) (Auto) 49.9 % 08/30/22 Lymphocytes (%) (Auto) 36.5 % 08/30/22 Monocytes # (Auto) 0.64 K/uL (0.11-0.59) H 08/30/22 Eosinophils # (Auto) 0.12 K/uL (0-0.50) 08/30/22 Immature Granulocyte % (Auto) 0.8 % 08/30/22 Neutrophils # (Auto) 3.17 K/uL (1.40-6.50) 08/30/22 Lymphocytes # (Auto) 2.32 K/uL (1.2-3.4) 08/30/22 Monocytes # (Auto) 0.64 K/uL (0.11-0.59) H 08/30/22 Eosinophils # (Auto) 0.12 K/uL (0-0.50) 08/30/22 Basophils # (Auto) 0.05 K/uL (0-0.2) 08/30/22 Immature Granulocyte # (Auto) 0.05 K/uL (0.01-0.20) 3 Na 132 mmol/L (136-145) L 08/30/22 K 4.4 mmol/L (3.5-5.1) 08/30/22 Cl 103 mmol/L (98-107) 08/30/22 CO2 24 mmol/L (21-32) 08/30/22 Anion Gap 5 (3-11) 08/30/22 BUN 17 mg/dl (6-23) 08/30/22 Creatinine 0.82 mg/dl (0.6-1.4) 08/30/22 Estimated GFR ( Amer) 99.6 ml/min 08/30/22 Estimated GFR (Non-Af Amer) 85.9 ml/min 08/30/22 BUN/Creatinine Ratio 20.7 (10-20) H 08/30/22 Glu 145 mg/dl (70-99(Fasting)) H 08/30/22 Ca 8.0 mg/dl (8.6-10.3) L 08/30/22 Total Bilirubin 0.5 mg/dl (0.2-1.0) 08/30/22 AST 16 U/L (13-39) 08/30/22 ALT 18 U/L (7-52) 08/30/22 Alkaline Phosphatase 73 U/L (34-104) 08/30/22 TP 6.0 gm/dl (6.0-8.3) 08/30/22 Albumin 3.7 gm/dl (3.4-5.0) 08/30/22 Globulin 2.3 gm/dl (2.5-4.0) L 08/30/22 Albumin/Globulin Ratio 1.6 (0.9-2) 08/30/22 Mg 1.9 mg/dl (1.7-2.4) 08/30/22 13:43 Calcium Level 8.0 mg/dl (8.6-10.3) L 08/30/22 13:43 Prothromb Time International Ratio 1.1 (0.9-1.1) 08/30/22 13:4 3 Diagnostic Findings (Past 24 Hours) Chest X-Ray 08/30/22 13:19 XR chest 1V portable CLINICAL HISTORY: neuro deficit, acute stroke suspected COMPARISON STUDY: Chest radiograph and chest CT April 13, 2022. FINDINGS: Old right-sided rib fractures are again noted. Lung volumes are normal. Lungs are clear. There is no pneumothorax or pleural effusion. Cardiomegaly is unchanged. Mediastinal contours are normal. There is no evidence for pulmonary edema. IMPRESSION: No acute cardiopulmonary findings. Cardiomegaly. ACT 112: Negative or not required by law. Electronically signed by: Isra Urias M.D. 08/30/2022 2:[address] 08/30/22 13:19 CT OF THE HEAD WITHOUT CONTRAST CLINICAL HISTORY: neuro deficit, acute stroke suspected COMPARISON STUDY: No previous studies for comparison. TECHNIQUE: Helical axial images of the head were obtained without IV contrast. Automated exposure control was utilized for the study. A dose lowering technique was utilized adhering to the principles of ALARA. FINDINGS: No acute intracranial hemorrhage, midline shift or mass effect is present. A 2.1 cm hypodensity with volume loss suggests encephalomalacia within the left occipital lobe shown on axial image 19 of 32. White matter hypodensity suggests small vessel disease. The ventricular system is unremarkable. The basal cisterns are patent. No extra-axial collections are present. There are no findings to suggest acute dural sinus thrombosis or acute territorial infarct. No significant calvarial abnormalities are present. Visualized portions of the sinuses and mastoid air cells are clear. IMPRESSION: 1. No acute intracranial hemorrhage or mass effect. 2. 2.1 cm left occipital lobe hypodensity suggestive of encephalomalacia. 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 ACT 112: Negative or not required by law. Electronically signed by: Isra Urias M.D. 08/30/2022 1:41 PM Head CTA 08/30/22 13:19 CTA ANGIOGRAPHY OF THE HEAD CLINICAL HISTORY: neuro deficit, acute stroke suspected COMPARISON STUDY: No previous studies for comparison. TECHNIQUE: Helical axial images of the head were obtained following uneventful intravenous administration of 120 cc of Optiray. Sagittal and coronal reconstructions were viewed as well as maximal intensity projections on an independent 3-D workstation. Automated exposure control was utilized for the study. A dose lowering technique was utilized adhering to the principles of ALARA. 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 There is moderate plaque within the bilateral cavernous carotids without stenosis. No central vessel occlusion is identified. There is no intracranial aneurysm. Major dural sinuses are grossly patent. Head CT will be reported separately. IMPRESSION: No central vessel occlusion. No intracranial aneurysm. ACT 112: Negative or not required by law. Electronically signed by: Isra Urias M.D. 08/30/2022 1:51 PM Neck CTA 08/30/22 13:19 CT ANGIOGRAPHY OF THE NECK WITH CONTRAST CLINICAL HISTORY: neuro deficit, acute stroke suspected COMPARISON STUDY: No previous studies for comparison. Technique: CT angiography of the carotid and vertebral arteries was obtained using Optiray and 3D reconstruction on an independent workstation. NASCET criteria was utilized. Automated exposure control was utilized for the study. A dose lowering technique was utilized adhering to the principles of ALARA. CT DOSE: 1258.88 mGy.cm Findings: Extensive osteophytosis within the cervical spine is noted. No acute fractures are identified. There is no cervical lymphadenopathy. There is mild plaque within the right carotid bifurcation without stenosis. There is moderate plaque within the left carotid bifurcation without significant stenosis. Severe stenosis at the origin of the left vertebral artery is present. The right vertebral artery is dominant. There is no dissection or aneurysm within the major vessels of the neck. IMPRESSION: 1. Moderate plaque within the left carotid bifurcation without stenosis. Mild plaque within the right carotid bifurcation. 2. 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 No additional stenoses within the major vessels of the neck. ACT 112: Negative or not required by law. Electronically signed by: Isra Urias M.D. 08/30/2022 1:45 PM I & O Totals 24 Hours 08/29/22 08/30/22 08/31/22 06:59 06:59 06:59 Output Total 1325 / 1325 Balance -1325 / -1325 Cumulative 08/30/22 13:11 thru 08/30/22 15:41 Output Total 1325 Balance -1325 RT Ventilator Mngmt (Last Documented) Ventilator Ordered Settings Respiratory Rate 16 08/30/22 17:00 Ventilator - PT Measurements Respiratory Rate 16 Coding Level of Care Code 63041 IN/OBS CONSULT LVL 3,45M Diagnoses Stroke-like symptom R29.90 Slurring of speech R47.81
[2022-08-30] MEDS ORDERED: LACTATED RINGER'S 1,000 ML IV SCH (17:15)
[2022-08-30] MEDS ORDERED: GADOBUTROL 65ML VIAL IV ONE (18:12)
--- NOTE | 2022-08-30 18:55 | Magnetic Resonance Report ---
MRI OF THE BRAIN WITHOUT AND WITH IV CONTRAST CLINICAL HISTORY: stroke sx s/p TNK. Slurred speech. COMPARISON STUDY: Head CT and CTA of the head performed earlier today. TECHNIQUE: Utilizing a 1.5 Lupe magnet and dedicated coil, multiplanar, multiecho imaging of the br ain was performed pre and postcontrast administration. IV administration of 9.6 mL of Gadavist contr ast was uneventful. FINDINGS: There are no foci of restricted diffusion to suggest acute infarct. No acute intracranial h emorrhage, midline shift or mass effect is present. Ventricular system is unremarkable. Basal cistern s are patent. There are no extra-axial collections. Flow-voids for the major intracranial vessels are present. A 2 cm focus of encephalomalacia within left occipital lobe represents an old infarct. No i ntracranial mass or pathologic enhancement. Calvarial signal is within normal limits. Trace fluid wit hin the bilateral mastoid air cells. There is mild atrophy. IMPRESSION: 1. No acute intracranial findings. 2. No intracranial mass or pathologic enhancement. 3. Old left occipital lobe infarct. ACT 112: Negative or not required by law. Electronically signed by: Isra Urias M.D. 08/30/2022 6:53 PM
[2022-08-30] MEDS ORDERED: INSULIN HUMAN NPH SC SCH (21:00)
--- NOTE | 2022-08-30 22:09 | Electrocardiogram Report ---
Test Reason : Blood Pressure : / mmHG Vent. Rate : 075 BPM Atrial Rate : 075 BPM P-R Int : 194 ms QRS Dur : 078 ms QT Int : 354 ms P-R-T Axes : 056 055 065 degrees QTc Int : 395 ms Normal sinus rhythm Anteroseptal infarct , age undetermined Abnormal ECG When compared with ECG of 13-APR-2022 04:37, Anteroseptal infarct is now Present Confirmed by Adonay Monge ([id number]) on 08/30/2022 10:09:04 PM Referred By: REFERRED SELF Confirmed By:Adonay Monge
[2022-08-31] MEDS: INSULIN ASPART PER UNIT CHARGE SC SCH ×4 (00:29→21:05)
[2022-08-31] MEDS: ICU Protocol for HYPERglycemia SCH (07:24)
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
[2022-08-31] MEDS ORDERED: LANTUS PER UNIT CHARGE SQ ONE (11:45)
[2022-08-31] MEDS ORDERED: INSULIN ASPART PER UNIT CHARGE SC ONE (11:45)
--- NOTE | 2022-08-31 13:34 | Pharmacy Report ---
Pharmacy Glycemic Short Note 2 - Date of Service August 31, 2022 - Glycemic Short BSG Results (Last 24 hours): 08/30/22 08/30/22 08/30/22 13:43 13:47 16:49 Glucose 145 H POC Glucose 146 H 136 H 08/31/22 11:32 Glucose POC Glucose 288 H OUTPATIENT ANTIDIABETIC REGIMEN: * Novolog 70/30 - 18 units SC BID * Metformin 1000 mg PO BID HbA1c ordered/pending ASSESSMENT: * EC is a 77 year old male presented to ED on 08/30/22 with stroke-like symptoms * TNKAse administered yesterday afternoon (~1417) * BSG on presentation of 146 mg/dL * Given TNKase administration, no POC BSG checks last night or this morning * Lunch BSG of 288 mg/dL. However, RN reports late lunch eaten by patient so won't overreact to this elevated BSG. * Repeat BSG this afternoon of 120 mg/dL - given significant decrease from [facility], will loosen Novolog PLAN FOR INPATIENT GLYCEMIC CONTROL: * Hold outpatient oral diabetes medications * Basal insulin * Lantus 20 units SC x 1 (~0.2 unit/kg, ~50% of home insulin dosing) * Bolus insulin * NovoLog per scale ACHS or Q6hrs while NPO * Goal Range: Low 110 mg/dL - High 140 mg/dL * Correction Factor: 45 mg/dL/unit * Nutritional / Prandial insulin per carb ratio of 1 unit per 15 grams CHO consumed
[2022-08-31 14:49] LABS: Basophils # (auto) 0.05 K/uL (0-0.2); Basophils % (auto) 0.5 %; Eosinophils # (auto) 0.12 K/uL (0-0.50); Eosinophils % (auto) 1.3 %; Hematocrit (blood only) 42.1 % (42.0-52.0); Hemoglobin 14.5 g/dl (14.0-18.0); Immature Granulocytes # (auto) 0.04 K/uL (0.01-0.20); Immature Granulocytes % (auto) 0.4 %; Lymphocytes # (auto) 2.06 K/uL (1.2-3.4); Lymphocytes % (auto) 22.3 %; Mean Corpuscular Hemoglobin 30.5 pg (25.0-34.0); Mean Corpuscular Hgb Conc 34.4 g/dL (32.0-36.0); Mean Corpuscular Volume 88.4 fL (80.0-100.0); Mean Platelet Volume 9.4 fL (9.4-12.4); Monocytes # (auto) 0.89 K/uL (0.11-0.59); Monocytes % (auto) 9.7 %; Neutrophils # (auto) 6.06 K/uL (1.40-6.50); Neutrophils % (auto) 65.8 %; Platelet Count 204 K/uL (130-400); RDW Coefficient of Variation 12.9 % (11.5-14.5); RDW Standard Deviation 41.8 fL (36.4-46.3); Red Blood Count 4.76 M/uL (4.70-6.10); White Blood Count 9.22 K/ul (4.8-10.8)
[2022-08-31 14:57] LABS: Estimated Average Glucose 157 mg/dl; Hemoglobin A1C 7.1 % (4.5-5.6)
[2022-08-31 15:04] LABS: Chol HDL Ratio 3.4 (0-5)
--- NOTE | 2022-08-31 15:19 | CT Scan Report ---
CT OF THE HEAD WITHOUT CONTRAST CLINICAL HISTORY: repeat s/p TNK COMPARISON STUDY: Head CT, CTA of the head and MRI of the brain August 30, 2022. CT DOSE: 691.05 mGy.cm TECHNIQUE: Helical axial images of the head were obtained without IV contrast. Automated exposure con trol was utilized for the study. A dose lowering technique was utilized adhering to the principles o f ALARA. FINDINGS: No acute intracranial hemorrhage, midline shift or mass effect is present. 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 The appearance of the brain is unchanged. White matter hypodensity tidwell ggests small vessel disease. The ventricular system is unremarkable. The basal cisterns are patent. N o extra-axial collections are present. There are no findings to suggest acute dural sinus thrombosis or acute territorial infarct. No significant calvarial abnormalities are present. Visualized portions of the sinuses and mastoid air cells are clear. IMPRESSION: No acute intracranial findings. No change in appearance of the brain. ACT 112: Negative or not required by law. Electronically signed by: Isra Urias M.D. 08/31/2022 3:16 PM
[2022-08-31] MEDS ORDERED: LABETALOL HCL IV 5 MG/ML 20ML IV PRN (15:41)
[2022-08-31 15:44] LABS: Lyme Ab IgG w/WB Rflx Negative (Negative); Lyme Ab IgM w/WB Rflx Negative (Negative)
[2022-08-31] MEDS ORDERED: ATORVASTATIN 40 MG TAB PO SCH (16:30)
--- NOTE | 2022-08-31 16:30 | Hospitalist Progress Note ---
Date of Service August 31, 2022 Assessment & Plan (1) Stroke-like symptom: (2) Slurring of speech: (3) Carotid arterial disease: (4) DM type 2 (diabetes mellitus, type 2): Plan Patient is a 77 yr male with H/O Insulin-dependent diabetes, hypertension, hyperlipidemia, [place] with previous shrapnel injury who presents to ED secondary to dysarthria that started at 1300. 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 No intracranial mass or pathologic enhancement. Old left occipital lobe infarct. --CT Head:No acute intracranial hemorrhage or mass effect. 2.1 cm left occipital lobe hypodensity suggestive of encephalomalacia. 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 --Head CTA:No central vessel occlusion. No intracranial aneurysm. --Neck CTA:Moderate plaque within the left carotid bifurcation without stenosis. Mild plaque within the right carotid bifurcation. 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 No additional stenoses within the major vessels of the neck. --ECHO: Study was technically limited. EF 60 to 65%. Mild concentric LVH. Grade 1 diastolic dysfunction. Mild mitral regurgitation. Injection of contrast documented no interatrial shunt. -- Lipid panel: Triglycerides 234, total. 127, LDL 43 S/P TNKase Completed 24 hours of protocol after TNKase administration Repeat CT after 24 hours: No acute intracranial findings. No change in appearance of the brain. Appreciate digital media director, neurology input Will restart aspirin, Lipitor add Plavix Plan to continue dual antiplatelet therapy for 21 days, then transition to Plavix monotherapy. PT OT, speech eval Needs follow-up with neurology upon discharge Will need 30-day mobile precision dyer arranged as outpatient DM II HbA1C:7.1 Continue Insulin Monitor BGs Consulted glycemic pharmacist BPH On Proscar SVT Px: SCDs Code Status FULL CODE Admission and Anticipated Discharge Date Admission Date: August 30, 2022 Subjective Patient is seen and examined at bedside States feeling well today No recurrence of difficulty with speech Denies any focal weakness No new complaints Denies any chest pain, dyspnea, dizziness, nausea, abdominal pain, change in vision Discussed with neurology Dr. Nicholas Review of Systems Review of Systems: All systems reviewed & are unremarkable except as noted in Subjective Physical Exam Physical Exam: Physical Exam: Vitals signs as noted above General Appearance:Moderately built and nourished, no apparent distress Head: normocephalic, Atraumatic Eyes: normal inspection, EOMI Neck: supple, Trachea midline Respiratory/Chest: Normal breath sounds, CTA, No accessory muscle use Cardiovascular: S1, S2, No murmur Abdomen/GI:Soft, Non tender, Bowel sounds present Extremities/Musculoskeletal:normal inspection, no edema Neurologic/Psych:AAOX3, grossly no focal neurological deficits, Mild facial droop Skin: normal color, warm Results & Data Results & Data Vital Signs (Past 12 Hours) Vital Signs Temp Pulse Pulse Resp BP BP Pulse Ox 08/31/22 16:00 62 18 128/68 96 08/31/22 14:18 62 18 134/67 98 08/31/22 15:09 36.8 C 08/31/22 14:17 36.8 C 64 18 134/67 97 08/31/22 14:00 36.6 C 65 20 133/61 98 08/31/22 13:00 36.8 C 61 17 131/57 L 94 08/31/22 12:00 36.7 C 75 17 139/64 99 08/31/22 11:00 36.7 C 59 L 17 136/63 98 08/31/22 11:41 37.5 C 08/31/22 10:00 36.8 C 66 22 154/65 H 97 08/31/22 09:15 36.8 C 61 16 141/64 H 98 08/31/22 08:15 36.7 C 67 15 122/77 96 08/31/22 08:00 61 08/31/22 07:15 36.8 C 73 18 150/72 H 97 08/31/22 06:15 36.8 C 58 L 16 132/73 97 08/31/22 05:15 36.8 C 60 14 137/63 99 O2 Del Method 08/31/22 16:00 Room Air 08/31/22 14:18 Room Air 08/31/22 15:09 08/31/22 14:17 Room Air 08/31/22 14:00 Room Air 08/31/22 13:00 Room Air 08/31/22 12:00 Room Air 08/31/22 11:00 Room Air 08/31/22 11:41 08/31/22 10:00 Room Air 08/31/22 09:15 Room Air 08/31/22 08:15 Room Air 08/31/22 08:00 08/31/22 07:15 Room Air 08/31/22 06:15 Room Air 08/31/22 05:15 Room Air Laboratory Results Short CBC 08/31/22 Range/Units 14:25 WBC 9.22 (4.8-10.8) K/ul Hgb 14.5 (14.0-18.0) g/dl Hct 42.1 (42.0-52.0) % Plt Count 204 (130-400) K/uL (3) Carotid arterial disease Carotid artery disease type: unspecified Laterality: unspecified laterality Qualified Code(s): I77.9 - Disorder of arteries and arterioles, unspecified
[2022-08-31] MEDS: CLOPIDOGREL BISULFATE 75 MG TAB PO SCH (16:53)
[2022-08-31] MEDS: ATORVASTATIN 40 MG TAB PO SCH (16:54)
[2022-08-31] MEDS: ASPIRIN 81 MG ECTAB PO SCH (16:54)
[2022-09-01 06:57] LABS: Basophils # (auto) 0.05 K/uL (0-0.2); Basophils % (auto) 0.5 %; Eosinophils # (auto) 0.12 K/uL (0-0.50); Eosinophils % (auto) 1.2 %; Hematocrit (blood only) 41.6 % (42.0-52.0); Hemoglobin 14.6 g/dl (14.0-18.0); Immature Granulocytes # (auto) 0.07 K/uL (0.01-0.20); Immature Granulocytes % (auto) 0.7 %; Lymphocytes # (auto) 1.94 K/uL (1.2-3.4); Lymphocytes % (auto) 19.7 %; Mean Corpuscular Hemoglobin 30.1 pg (25.0-34.0); Mean Corpuscular Hgb Conc 35.1 g/dL (32.0-36.0); Mean Corpuscular Volume 85.8 fL (80.0-100.0); Mean Platelet Volume 9.4 fL (9.4-12.4); Monocytes # (auto) 0.95 K/uL (0.11-0.59); Monocytes % (auto) 9.6 %; Neutrophils # (auto) 6.73 K/uL (1.40-6.50); Neutrophils % (auto) 68.3 %; Platelet Count 215 K/uL (130-400); RDW Coefficient of Variation 12.7 % (11.5-14.5); RDW Standard Deviation 39.3 fL (36.4-46.3); Red Blood Count 4.85 M/uL (4.70-6.10); White Blood Count 9.86 K/ul (4.8-10.8)
[2022-09-01] MEDS: INSULIN ASPART PER UNIT CHARGE SC SCH ×2 (08:24→11:55)
[2022-09-01] MEDS: ATORVASTATIN 40 MG TAB PO SCH (08:27)
[2022-09-01] MEDS: ASPIRIN 81 MG ECTAB PO SCH (08:27)
[2022-09-01] MEDS ORDERED: FINASTERIDE 5 MG TAB PO SCH (09:00)
[2022-09-01] MEDS ORDERED: NON-FORMULARY MEDICATION (Cranberry 500 mg Capsule) PO SCH (09:00)
[2022-09-01] MEDS ORDERED: LANTUS PER UNIT CHARGE SQ SCH ×2 (09:00)
[2022-09-01] MEDS: CLOPIDOGREL BISULFATE 75 MG TAB PO SCH (09:28)
--- NOTE | 2022-09-01 10:49 | Pharmacy Report ---
- Date of Service September 01, 2022 - Pharmacy CVA/TIA Medication Review Medications to Prevent Stroke handout has been added to the patients discharge packet. Antiplatelet(s) * ASA 81 mg + Plavix 75 mg x 21 days then plavix 75 mg daily ongoing Cholesterol * High intensity statin: atorvastatin 40 mg daily DVT Prophylaxis * SCD knee Therapeutic Anticoagulation * No history of Afib/Aflutter noted- cardiac follow-up monitoring recommended Type 2 Diabetes * Patient has T2DM, a diabetes medication with proven CVD benefit may be deferred to their outpatient provider due to familiarity with risks/benefits of such therapies. "Medications to prevent stroke" handout has already been added to the patient's discharge packet, which instructs the patient to follow up with their outpatient provider to evaluate which diabetes medication with proven CVD benefit is best for them
--- NOTE | 2022-09-01 13:34 | CT Scan Report ---
CT head/brain wo con CLINICAL HISTORY: 77 years-old Male with altered mental status. Acutely altered mental status TECHNIQUE: Multiple axial CT images of the head were obtained without contrast. A dose lowering tech nique was utilized adhering to the principles of ALARA. CT DOSE: 729.78 mGycm COMPARISON: 08/31/2022, 08/30/2022 FINDINGS: No acute intracranial hemorrhage, midline shift, intracranial mass, hydrocephalus, territorial ischem ia or abnormal extra-axial collection. Involutional changes with mild chronic microvascular ischemic disease. Chronic left parieto-occipital infarct. Mildly motion degraded exam. The calvarium is intact. Prior left-sided lens repair. The paranasal sinuses, mastoid air cells, and middle ear cavities are clear. IMPRESSION: No acute intracranial abnormality. ACT 112: Negative or not required by law. The above report was generated using voice recognition software. It may contain grammatical, syntax o r spelling errors. Electronically signed by: Dale Rodriguez M.D. 09/01/2022 1:32 PM
--- NOTE | 2022-09-01 13:50 | Pharmacy Report ---
Pharmacy Glycemic Short Note 2 - Date of Service September 01, 2022 - Glycemic Short BSG Results (Last 24 hours): 08/31/22 08/31/22 08/31/22 14:46 15:52 20:27 POC Glucose 120 H 96 120 H 09/01/22 09/01/22 09/01/22 06:15 07:35 11:23 POC Glucose 152 H 161 H 132 H OUTPATIENT ANTIDIABETIC REGIMEN: * Novolog 70/30 - 18 units SC BID * Metformin 1000 mg PO BID HbA1c ordered/pending ASSESSMENT: 09/01: * Fasting BSG 161 mg/dL this morning- will continue 10 units BID of lantus * Continue current novolog parameters, lunch BSG 132 mg/dL 08/31 * EC is a 77 year old male presented to ED on 08/30/22 with stroke-like symptoms * TNKAse administered yesterday afternoon (~1417) * BSG on presentation of 146 mg/dL * Given TNKase administration, no POC BSG checks last night or this morning * Lunch BSG of 288 mg/dL. However, RN reports late lunch eaten by patient so won't overreact to this elevated BSG. * Repeat BSG this afternoon of 120 mg/dL - given significant decrease from lunch, will loosen Novolog PLAN FOR INPATIENT GLYCEMIC CONTROL: * Hold outpatient oral diabetes medications * Basal insulin * Lantus 10 units BID * Bolus insulin * NovoLog per scale ACHS or Q6hrs while NPO * Goal Range: Low 110 mg/dL - High 140 mg/dL * Correction Factor: 45 mg/dL/unit * Nutritional / Prandial insulin per carb ratio of 1 unit per 15 grams CHO consumed
--- NOTE | 2022-09-01 14:03 | Hospitalist Progress Note ---
Date of Service September 01, 2022 Assessment & Plan (1) Stroke-like symptom: (2) Slurring of speech: (3) Carotid arterial disease: (4) DM type 2 (diabetes mellitus, type 2): Plan Patient is a 77 yr male with H/O Insulin-dependent diabetes, hypertension, hyperlipidemia, [place] [employer] with previous shrapnel injury who presents to ED secondary to dysarthria that started at 1300. 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 No intracranial mass or pathologic enhancement. Old left occipital lobe infarct. --CT Head:No acute intracranial hemorrhage or mass effect. 2.1 cm left occipital lobe hypodensity suggestive of encephalomalacia. 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 --Head CTA:No central vessel occlusion. No intracranial aneurysm. --Neck CTA:Moderate plaque within the left carotid bifurcation without stenosis. Mild plaque within the right carotid bifurcation. 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 No additional stenoses within the major vessels of the neck. --ECHO: Study was technically limited. EF 60 to 65%. Mild concentric LVH. Grade 1 diastolic dysfunction. Mild mitral regurgitation. Injection of contrast documented no interatrial shunt. -- Lipid panel: Triglycerides 234, total. 127, LDL 43 S/P TNKase Completed 24 hours of protocol after TNKase administration Repeat CT after 24 hours: No acute intracranial findings. No change in appearance of the brain. Appreciate adjunct professor of english, neurology input Continue aspirin, Lipitor, Plavix Plan to continue dual antiplatelet therapy for 21 days, then transition to Plavix monotherapy. PT OT, speech eval Needs follow-up with neurology upon discharge Advised 30-day mobile nuclear monitoring technician arranged as outpatient Delirium ? Dementia Reorient frequently Advised to follow up with Neurology upon discharge DM II HbA1C:7.1 Continue Insulin Monitor BGs Consulted glycemic pharmacist BPH On Proscar SVT Px: SCDs Code Status FULL CODE Admission and Anticipated Discharge Date Admission Date: August 30, 2022 Subjective Patient is seen and examined at bedside Delirious overnight Oriented X3 during my encounter Has been having short-term memory issues lately as per patient's son Discussed with patient's son over the phone Denies any chest pain, dyspnea, dizziness, nausea, abdominal pain, change in vision Repeat CT head showed no acute findings Plan to discharge home today Review of Systems Review of Systems: All systems reviewed & are unremarkable except as noted in Subjective Physical Exam Physical Exam: Physical Exam: Vitals signs as noted above General Appearance:Moderately built and nourished, no apparent distress Head: normocephalic, Atraumatic Eyes: normal inspection, EOMI Neck: supple, Trachea midline Respiratory/Chest: Normal breath sounds, CTA, No accessory muscle use Cardiovascular: S1, S2, No murmur Abdomen/GI:Soft, Non tender, Bowel sounds present Extremities/Musculoskeletal:normal inspection, no edema Neurologic/Psych:AAOX3, grossly no focal neurological deficits, Mild facial droop Skin: normal color, warm Results & Data Results & Data Vital Signs (Past 12 Hours) Vital Signs Temp Pulse Pulse Resp BP Pulse Ox O2 Del Method 09/01/22 11:57 37.0 C 64 17 126/74 99 Room Air 09/01/22 08:04 36.7 C 71 19 142/81 H 98 Room Air 09/01/22 03:00 36.8 C 68 16 129/71 97 Room Air Laboratory Results Short CBC 08/31/22 09/01/22 Range/Units 14:25 06:26 WBC 9.22 9.86 (4.8-10.8) K/ul Hgb 14.5 14.6 (14.0-18.0) g/dl Hct 42.1 41.6 L (42.0-52.0) % Plt Count 204 215 (130-400) K/uL (3) Carotid arterial disease Carotid artery disease type: unspecified Laterality: unspecified laterality Qualified Code(s): I77.9 - Disorder of arteries and arterioles, unspecified
[2022-09-01] MEDS ORDERED: STROKE PATIENT DISCHARGE STA (14:53)
--- NOTE | 2022-09-01 14:54 | Discharge Summary ---
Date of Service September 01, 2022 Admission HPI Per Admitting Provider This is a 77-year-old male who follows with the [facility] who has significant past medical history of insulin-dependent diabetes, hypertension, hyperlipidemia, [place] with previous shrapnel injury who presents to ED secondary to dysarthria that started at 1300. His son is at bedside who witnessed the event. At approximately 1300 patient started slurring his words and, "not making sense." Son had very difficult time understanding patient. Patient at that time also complained of bilateral numbness like his, "legs were falling asleep." In ED patient remained hemodynamically stable. Initial head CT revealed a 2.1 cm left occipital lobe hypodensity suggestive of encephalomalacia suggestive of an old infarct but no acute intracranial hemorrhage. Head and neck CTA revealed severe stenosis at the origin of the left vertebral artery, moderate plaque within the left carotid bifurcation without stenosis, mild plaque within the right carotid bifurcation. Patient was a stroke alert and telemetry neurology recommending TNK administration. TNKase was administered at 1417. Patient was seen post administration. According to son at bedside he feels his difficulty with speaking is now coming and going. According to nurse at bedside his NIH scale is reducing. His blood pressure has remained stable. Patient is very hard of hearing. He tells me he follows with the [facility]. 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 This required a partial colectomy. He tells me he has diabetes and takes insulin but is unsure of his medications and really denies any other past medical problems. Admission Exam Per Admitting Provider Constitutional: WD/WN, vitals as above, NAD, sitting up in bed, pleasant, conversing easily Head: Normocephalic, Atraumatic Eyes: PERRL, conjunctivae normal, anicteric sclerae ENMT: external ear and nose normal, oropharynx normal Neck: trachea midline, no thyromegaly normal visual inspection Respiratory: normal respiratory effort, lungs clear to auscultation, no wheeze, rales, rhonchi. Normal insp/exp effort, no accessory muscle use Cardiovascular: RRR, no murmur, no edema Vessels: no JVD or carotid bruit Chest: normal inspection of chest Abdomen: normal bowel sounds, soft, nontender, no hepatosplenomegaly Musculoskeletal: no cyanosis or clubbing, extremities motor strength 5/5 Skin: no rashes, warm and dry normal turgor Neurologic: PERRL, EOMI, accommodation nl, mild left facial droop, mild dysarthria CN's II-XI intact bilaterally and moves all extremities Psychiatric: A+Ox3, euthymic affect Lymphatic: no cervical or axillary lymphadenopathy : deferred Principal Diagnosis Transient ischemic attack Carotid artery stenosis Vertebral artery stenosis Peripheral neuropathy Old left occipital lobe infarct Delirium Discharge Data Allergies Allergy/AdvReac Type Severity Reaction Status Date / Time No Known Allergies Allergy Unknown Verified 04/13/22 06:22 Consultations 08/30/22 14:23 ED Decision to Admit Stat 08/30/22 14:37 Consult Interior Designer Routine Consult Neurology Routine Procedures Performed Laboratory Results WBC 9.86 K/ul (4.8-10.8) 09/01/22 06:26 RBC 4.85 M/uL (4.70-6.10) 09/01/22 06:26 Hgb 14.6 g/dl (14.0-18.0) 09/01/22 06:26 Hct 41.6 % (42.0-52.0) L 09/01/22 06:26 MCV 85.8 fL (80.0-100.0) 09/01/22 06:26 MCH 30.1 pg (25.0-34.0) 09/01/22 06:26 MCHC 35.1 g/dL (32.0-36.0) 09/01/22 06:26 RDW Std Deviation 39.3 fL (36.4-46.3) 09/01/22 06:26 RDW Coeff of Primo 12.7 % (11.5-14.5) 09/01/22 06:26 Plt Count 215 K/uL (130-400) 09/01/22 06:26 MPV 9.4 fL (9.4-12.4) 09/01/22 06:26 Immature Gran % (Auto) 0.7 % 09/01/22 06:26 Neut % (Auto) 68.3 % 09/01/22 06:26 Lymph % (Auto) 19.7 % 09/01/22 06:26 [place] % (Auto) 9.6 % 09/01/22 06:26 Eos % (Auto) 1.2 % 09/01/22 06:26 Baso % (Auto) 0.5 % 09/01/22 06: Neut # (Auto) 6.73 K/uL (1.40-6.50) H 09/01/22 06: Lymph # (Auto) 1.94 K/uL (1.2-3.4) 09/01/22 06:26 [place] # (Auto) 0.95 K/uL (0.11-0.59) H 09/01/22 06: Eos # (Auto) 0.12 K/uL (0-0.50) 09/01/22 06: Baso # (Auto) 0.05 K/uL (0-0.2) 09/01/22 06: Immature Gran # (Auto) 0.07 K/uL (0.01-0.20) 09/01/22 06: PT 11.4 Seconds (9.0-12.0) 08/30/22 13:43 INR 1.1 (0.9-1.1) 08/30/22 13:43 APTT 26.2 Seconds (21.0-31.0) 08/30/22 13:43 PTT Ratio 1.0 08/30/22 13:43 Sodium 132 mmol/L (136-145) L 08/30/22 13:43 Potassium 4.4 mmol/L (3.5-5.1) 08/30/22 13:43 Chloride 103 mmol/L (98-107) 08/30/22 13:43 Carbon Dioxide 24 mmol/L (21-32) 08/30/22 13:43 Anion Gap 5 (3-11) 08/30/22 13:43 BUN 17 mg/dl (6-23) 08/30/22 13:43 Creatinine 0.82 mg/dl (0.6-1.4) 08/30/22 13:43 Est Cr Clr Drug Dosing 88.6 ml/min 08/30/22 13:43 Est GFR ( Amer) 99.6 ml/min 08/30/22 13:43 Est GFR (Non-Af Amer) 85.9 ml/min 08/30/22 13:43 BUN/Creatinine Ratio 20.7 (10-20) H 08/30/22 13:43 Glucose 145 mg/dl (70-99(Fasting)) H 08/30/22 13:43 POC Glucose 132 mg/dl (70-99) H 09/01/22 11:23 Estimat Average Glucose 157 mg/dl 08/31/22 14:25 Hemoglobin A1c 7.1 % (4.5-5.6) H 08/31/22 14:25 Calcium 8.0 mg/dl (8.6-10.3) L 08/30/22 13:43 Magnesium 1.9 mg/dl (1.7-2.4) 08/30/22 13:43 Total Bilirubin 0.5 mg/dl (0.2-1.0) 08/30/22 13:43 AST 16 U/L (13-39) 08/30/22 13:43 ALT 18 U/L (7-52) 08/30/22 13:43 Alkaline Phosphatase 73 U/L (34-104) 08/30/22 13:43 Troponin I High Sens 5.2 pg/ml (0-20) 08/30/22 13:43 Total Protein 6.0 gm/dl (6.0-8.3) 08/30/22 13:43 Albumin 3.7 gm/dl (3.4-5.0) 08/30/22 13:43 Globulin 2.3 gm/dl (2.5-4.0) L 08/30/22 13:43 Albumin/Globulin Ratio 1.6 (0.9-2) 08/30/22 13:43 Triglycerides 234 mg/dl (0-150) H 08/31/22 14:25 Cholesterol 127 mg/dl (0-200) 08/31/22 14:25 LDL Cholesterol, Calc 43 mg/dl 08/31/22 14:25 VLDL Cholesterol, Calc 47 mg/dl (0-30) H 08/31/22 14:25 HDL Cholesterol 37 mg/dl 08/31/22 14:25 Cholesterol/HDL Ratio 3.4 (0-5) 08/31/22 14:25 Urine Color Yellow 08/30/22 15:00 Urine Appearance Clear (Clear) 08/30/22 15:00 Urine pH 7.0 (4.5-7.5) 08/30/22 15:00 Ur Specific [place] 1.023 (1.000-1.030) 08/30/22 15:00 Urine Protein Negative (Negative) 08/30/22 15:00 Urine Glucose (UA) Trace (Negative) H 08/30/22 15:00 Urine Ketones Negative (Negative) 08/30/22 15:00 Urine Blood Negative (Negative) 08/30/22 15:00 Urine Nitrite Negative (Negative) 08/30/22 15:00 Urine Bilirubin Negative (Negative) 08/30/22 15:00 Urine Urobilinogen Negative (Negative) 08/30/22 15:00 Ur Leukocyte Esterase Negative (Negative) 08/30/22 15:00 Nasal Screen MRSA (PCR) Negative (Negative) 08/30/22 15:26 Lyme Disease IgG Ab Negative (Negative) 08/31/22 14:25 Lyme Disease IgM Ab Negative (Negative) 08/31/22 14:25 SARS-CoV-2, RNA, NAAT NEGATIVE (NEGATIVE) 08/30/22 14:29 Impressions Chest X-Ray 08/30/22 13:19 XR chest 1V portable CLINICAL HISTORY: neuro deficit, acute stroke suspected COMPARISON STUDY: Chest radiograph and chest CT April 13, 2022. FINDINGS: Old right-sided rib fractures are again noted. Lung volumes are normal. Lungs are clear. There is no pneumothorax or pleural effusion. Cardiomegaly is unchanged. Mediastinal contours are normal. There is no evidence for pulmonary edema. IMPRESSION: No acute cardiopulmonary findings. Cardiomegaly. ACT 112: Negative or not required by law. Electronically signed by: Isra Urias M.D. 08/30/2022 2:10 PM Head CTA 08/30/22 13:19 CTA ANGIOGRAPHY OF THE HEAD CLINICAL HISTORY: neuro deficit, acute stroke suspected COMPARISON STUDY: No previous studies for comparison. TECHNIQUE: Helical axial images of the head were obtained following uneventful intravenous administration of 120 cc of Optiray. Sagittal and coronal reconstructions were viewed as well as maximal intensity projections on an independent 3-D workstation. Automated exposure control was utilized for the study. A dose lowering technique was utilized adhering to the principles of ALARA. 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 There is moderate plaque within the bilateral cavernous carotids without stenosis. No central vessel occlusion is identified. There is no intracranial aneurysm. Major dural sinuses are grossly patent. Head CT will be reported separately. IMPRESSION: No central vessel occlusion. No intracranial aneurysm. ACT 112: Negative or not required by law. Electronically signed by: Isra Urias M.D. 08/30/2022 1:51 PM Neck CTA 08/30/22 13:19 CT ANGIOGRAPHY OF THE NECK WITH CONTRAST CLINICAL HISTORY: neuro deficit, acute stroke suspected COMPARISON STUDY: No previous studies for comparison. Technique: CT angiography of the carotid and vertebral arteries was obtained using Optiray and 3D reconstruction on an independent workstation. NASCET criteria was utilized. Automated exposure control was utilized for the study. A dose lowering technique was utilized adhering to the principles of ALARA. CT DOSE: 1258.88 mGy.cm Findings: Extensive osteophytosis within the cervical spine is noted. No acute fractures are identified. There is no cervical lymphadenopathy. There is mild plaque within the right carotid bifurcation without stenosis. There is moderate plaque within the left carotid bifurcation without significant stenosis. Severe stenosis at the origin of the left vertebral artery is present. The right vertebral artery is dominant. There is no dissection or aneurysm within the major vessels of the neck. IMPRESSION: 1. Moderate plaque within the left carotid bifurcation without stenosis. Mild plaque within the right carotid bifurcation. 2. 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 No additional stenoses within the major vessels of the neck. ACT 112: Negative or not required by law. Electronically signed by: Isra Urias M.D. 08/30/2022 1:45 PM Brain MRI 08/30/22 15:34 MRI OF THE BRAIN WITHOUT AND WITH IV CONTRAST CLINICAL HISTORY: stroke sx s/p TNK. Slurred speech. COMPARISON STUDY: Head CT and CTA of the head performed earlier today. TECHNIQUE: Utilizing a 1.5 Lupe magnet and dedicated coil, multiplanar, multiecho imaging of the brain was performed pre and postcontrast administration. IV administration of 9.6 mL of Gadavist contrast was uneventful. FINDINGS: There are no foci of restricted diffusion to suggest acute infarct. No acute intracranial hemorrhage, midline shift or mass effect is present. Ventricular system is unremarkable. Basal cisterns are patent. There are no extra-axial collections. Flow-voids for the major intracranial vessels are present. A 2 cm focus of encephalomalacia within left occipital lobe represents an old infarct. No intracranial mass or pathologic enhancement. Calvarial signal is within normal limits. Trace fluid within the bilateral mastoid air cells. There is mild atrophy. IMPRESSION: 1. No acute intracranial findings. 2. No intracranial mass or pathologic enhancement. 3. Old left occipital lobe infarct. ACT 112: Negative or not required by law. Electronically signed by: Isra Urias M.D. 08/30/2022 6:[address] 09/01/22 11:56 CT head/brain wo con CLINICAL HISTORY: 77 years-old Male with altered mental status. Acutely altered mental status TECHNIQUE: Multiple axial CT images of the head were obtained without contrast. A dose lowering technique was utilized adhering to the principles of ALARA. CT DOSE: 729.78 mGycm COMPARISON: 08/31/2022, 08/30/2022 FINDINGS: No acute intracranial hemorrhage, midline shift, intracranial mass, hydrocephalus, territorial ischemia or abnormal extra-axial collection. Involutional changes with mild chronic microvascular ischemic disease. Chronic left parieto-occipital infarct. Mildly motion degraded exam. The calvarium is intact. Prior left-sided lens repair. The paranasal sinuses, mastoid air cells, and middle ear cavities are clear. IMPRESSION: No acute intracranial abnormality. ACT 112: Negative or not required by law. The above report was generated using voice recognition software. It may contain grammatical, syntax or spelling errors. Electronically signed by: Dale Rodriguez M.D. 09/01/2022 1:32 PM Ordered Studies 08/30/22 13:19 CT angio head w con Stat CT angio neck with con Stat CT head/brain wo con Stat 08/30/22 15:34 MR brain wo/w con Routine 08/31/22 14:[address] [CT head/brain wo con] Routine 09/01/22 11:56 CT head/brain wo con Urgent Hospital Course (1) Stroke-like symptom: (2) Slurring of speech: (3) Carotid arterial disease: (4) DM type 2 (diabetes mellitus, type 2): Plan Patient is a 77 yr male with H/O Insulin-dependent diabetes, hypertension, hyperlipidemia, [place] with previous shrapnel injury who presents to ED secondary to dysarthria that started at 1300. 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 No intracranial mass or pathologic enhancement. Old left occipital lobe infarct. --CT Head:No acute intracranial hemorrhage or mass effect. 2.1 cm left occipital lobe hypodensity suggestive of encephalomalacia. 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 --Head CTA:No central vessel occlusion. No intracranial aneurysm. --Neck CTA:Moderate plaque within the left carotid bifurcation without stenosis. Mild plaque within the right carotid bifurcation. 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 No additional stenoses within the major vessels of the neck. --ECHO: Study was technically limited. EF 60 to 65%. Mild concentric LVH. Grade 1 diastolic dysfunction. Mild mitral regurgitation. Injection of contrast documented no interatrial shunt. -- Lipid panel: Triglycerides 234, total. 127, LDL 43 S/P TNKase Completed 24 hours of protocol after TNKase administration Repeat CT after 24 hours: No acute intracranial findings. No change in appearance of the brain. Appreciate media production support manager, neurology input Continue aspirin, Lipitor, Plavix Plan to continue dual antiplatelet therapy for 21 days, then transition to Plav ix monotherapy. PT OT, speech eval Needs follow-up with neurology upon discharge Advised 30-day mobile rn cardiac arranged as outpatient Delirium ? Dementia Reorient frequently Advised to follow up with Neurology upon discharge DM II HbA1C:7.1 Continue Insulin Monitor BGs Consulted glycemic pharmacist BPH On Proscar SVT Px: SCDs Code Status FULL CODE Total Time Total Time Spent Total Time Spent (In Minutes): 56 minutes Discharge Plan Discharge Items Patient Disposition: Home - Self-Care Reason For Visit: STROKE Discharge Diagnosis: Transient ischemic attack Carotid artery stenosis Vertebral artery stenosis Peripheral neuropathy Old left occipital lobe infarct Delirium Activity: Per Instructions section Exercise/Sports: Gradually increase as tolerated Non-emergency contact: Primary Care Provider and Neurologist Call non-emergency contact if: you have any medication questions, your symptoms worsen, your pain is concerning for you and you have a fever Follow-up/Referrals: [facility] [Primary Care Provider] - Diet: Carb Consistent or DM2 Addtl Attending Provider Instructions: Follow-up with your primary care physician at [facility] in 1 week as advised Follow-up with your neurologist in 3 to 4 weeks. Consider following with vascular surgery for further evaluation of carotid and vertebral artery stenosis noted on your imaging studies. --Take aspirin 81 mg and Plavix 75 mg daily for 3 weeks and then take Plavix 75 mg daily alone as recommended by her neurologist. --Your neurologist advised 30-day mobile rn cardiac arranged as outpatient to rule out arrhythmias Seek immediate medical attention if your symptoms reoccur or worsen Please take all medications as instructed on discharge list below. Please call if you have any questions or problems. You can reach a [facility] hospitalist on duty at [facility] 24 hours a day by calling [phone] Risk Factors for Stroke: You can reduce your chances of stroke by working with your medical provider to adopt a healthy lifestyle. Some specific ways to lower your chance of stroke are: * If you are a smoker, now is the time to stop smoking cigarettes * If you are diabetic, improve the control of your blood sugars * Avoid excessive amounts of alcohol * Control high blood pressure * Lose weight if you are overweight * Be sure to lead an active lifestyle * Eat a healthy diet low in salt, cholesterol and fat You should know about other risk factors for stroke that you are unable to control. These include: * Age 55 years or older * Male gender * Certain racial groups: , or / * Family History of Stroke, Mini stroke or Heart Attack * Sickle Cell Disease Follow Up: It is important for you to keep your follow up appointments with your medical provider. Who to Call and When: Medical Emergencies: Call 911 immediately if you experience any of the following warning signs and symptoms of Stroke: * Sudden numbness or weakness of the face, arm or leg, especially on one side of the body * Sudden confusion, trouble speaking or understanding * Sudden trouble seeing in one or both eyes * Sudden trouble walking, dizziness, loss of balance or coordination * Sudden severe headache with no cause Do not delay calling 911 if you experience any warning signs or symptoms of a stroke. Delay in seeking medical attention may affect what treatments can be given to you. . Pending Studies at Discharge: No Stand-Alone Forms: [facility], Smoking Cessation, Medications to Prevent Stroke Medications and DC Order Prescriptions: New clopidogrel 75 mg Tablet 75 mg PO QAM Qty: 30 1RF Continued multivitamin Tablet 1 tab PO QAM atorvastatin 80 mg Tablet 40 mg PO QAM metformin 1,000 mg Tablet 1,000 mg PO BID lisinopril 10 mg Tablet 5 mg PO QAM finasteride 5 mg Tablet 5 mg PO QAM insulin asp prt-insulin aspart [Novolog Mix 70-30 U-100 Insuln] 100 unit/mL (70-30) Solution 18 unit SUBCUT BID aspirin 81 mg Tablet,Delayed Release (Dr/Ec) 81 mg PO DAILY cranberry 500 mg Capsule 500 mg PO DAILY omega 9-bvx-xgh-fish oil [Fish Oil] 1,000 mg (120 mg-180 mg) Capsule 1 cap PO DAILY Discharge Orders: Discharge Order (Routine); Ordered 09/01/22 Ordered By: Ananda Teran/Other Patient Handouts: Managing Type 2 Diabetes Admission Data Admit Date/Time: 08/30/22 14:37 Attending Provider: Ananda Spring Admit Provider: Ananda Spring Primary Care Provider: [facility] Other Providers: Ananda Spring ; Del Fabian ; Rodrigue Nicholas
--- NOTE | 2022-09-03 10:37 | Pharmacy Report ---
Pharmacist Stroke Counseling - Date of Service September 03, 2022 - Scope: Pharmacy has been consulted to provide medication discharge counseling for this patient admitted with transient ischemic attack as per the Pharmacist Discharge Counseling for Stroke Patients Protocol. - Medications on Discharge: Home Medications Medication Instructions Recorded Confirmed atorvastatin 80 mg tablet 40 mg PO QAM 06/04/20 08/30/22 finasteride 5 mg tablet 5 mg PO QAM 06/04/20 08/30/22 insulin aspar prt-insulin aspart 18 unit subcut BID 06/04/20 08/30/22 100 unit/mL (70-30) subcutaneous soln (Novolog Mix 70-30 U-100 Insuln) lisinopril 10 mg tablet 5 mg PO QAM 06/04/20 08/30/22 metformin 1,000 mg tablet 1,000 mg PO BID 06/04/20 08/30/22 multivitamin 1 tab PO QAM 06/04/20 08/30/22 aspirin 81 mg tablet,delayed 81 mg PO DAILY 04/13/22 08/30/22 release cranberry 500 mg capsule 500 mg PO DAILY 04/13/22 08/30/22 omega 4-dzg-aci-fish oil 1,000 mg 1 cap PO DAILY 04/13/22 08/30/22 (120 mg-180 mg) capsule (Fish Oil) New Rx's Medication Instructions Recorded clopidogrel 75 mg tablet 75 mg PO QAM #30 tabs 09/01/22 - Action: The above medications, specifically ones for stroke treatment/prophylaxis, have been reviewed in detail with the patient via telephone following discharge on 09/01/22. This includes indication, common adverse reactions, drug interactions, and medication administration. Medication counseling has been employed using the teach-back method to ensure understanding. - Outcome: Reached out to patient on 09/03/22 at 1015 AM to discuss new medications related to TIA. Patient was discharged from [facility] on 09/01/22. * Patient was very confused and forgetful. Patient had difficulty remembering th e current date. Several times throughout the counseling session, the patient failed to provide proper teach back of how to take Plavix. * At the end of the interview, patient was able to tell me how to properly take his medications, including: * Taking Aspirin 81 mg PO AM + Plavix 75 mg PO AM x 3 weeks with an Aspirin stop date fo 09/23/22. * Will continue taking Plavix 75 mg PO AM for remainder of life. Understood this is a prescription only medication and will require a doctors order to refill. * [facility] conversation was over to get an appointment. Believe patient will require close follow up as TIA has caused increased confusion which he admitted to "never being this helpless in his life". Instructed patient to call back into [facility] pharmacy or [facility] if he should have any further questions regarding medications. Thank you for allowing pharmacy to be involved in the care of this patient. Please call [phone] with any additional questions
== END 2022-09-01 16:00 | disposition home or self-care (01) | DRG 63 ==
LOC: ED 13:11 → 1E 14:37 → 2S 08-31 18:36